=== PATIENT | female | born 1950 | race Caucasian/White ===

== ENCOUNTER → 2016-10-29 | Outpatient (CLI) | payer MEDICARE ==
[2016-10-29 12:32] LABS: Basophils % (A) 1 %; CH 31.1; CHCM 32.2; Eosinophils # (A) 0.2 k/uL (0-0.7); Eosinophils % (A) 4 %; HCT 36.1 % (34.0-46.0); HDW 2.45; HGB 11.7 gm/dL (11.4-16.0); Luc # (Auto) 0.18; Luc % (Auto) 4; Lymphocytes % (A) 48 %; MCH 31.4 pg (25.0-35.0); MCHC 32.4 g/dL (31.0-37.0); Mean Platelet Volume 6.6; Monocytes # (A) 0.2 k/uL (0-1.0); Monocytes % (A) 5 %; Neutrophils # (A) 1.6 k/uL (1.3-7.7); Neutrophils % (A) 38 %; RBC 3.73 m/uL (3.80-5.40); RDW 13.9 % (11.5-15.5); WBC 4.1 k/uL (3.8-10.6); WBC (Perox) 4.34
[2016-10-29 12:42] LABS: Potassium 4.3 mmol/L (3.5-5.1)
== END | disposition home or self-care (01) ==
LOC: LABWHC1 12:00
PROVIDERS: ATTEND Internal Medicine Interventional Cardiology
DX: Z01.812 Encounter for preprocedural laboratory examination (principal); E78.00 Pure hypercholesterolemia, unspecified; I10 Essential (primary) hypertension; I25.10 Atherosclerotic heart disease of native coronary artery without angina pectoris
CPT/HCPCS: 36415; 80051; 82565; 84520; 85025

== ENCOUNTER 2016-11-02 20:03 | Observation (INO) | payer MEDICARE ==
[2016-11-02 22:28] VITALS: BMI 32.3
[2016-11-03] MEDS ORDERED: SODIUM CHLORIDE 0.9% 1,000 ML IV SCH (01:15)
[2016-11-03] MEDS ORDERED: diphenhydrAMINE 25 MG CAP ONE (06:58)
[2016-11-03] MEDS: predniSONE 20 MG TAB PO SCH ×2 (06:59→07:07)
[2016-11-03 07:38] LABS: Blood Urea Nitrogen 20 mg/dL (7-17); Non-African American GFR(MDRD) 52 (>60 ml/min/1.73 sqM)
[2016-11-03] MEDS: MIDAZOLAM 2 MG/2 ML VIAL IV ONE ×2 (07:49→07:54)
[2016-11-03] MEDS: VERAPAMIL SYRINGE (5 MG/10 ML) INTRAARTER ONE ×2 (07:53→08:15)
[2016-11-03] MEDS ORDERED: HEPARIN SODIUM 1,000 UNIT/ML VIAL IV ONE (07:54)
[2016-11-03] MEDS ORDERED: NITROGLYCERIN SL TABS 0.4 MG TAB SUBLINGUAL ONE (07:59)
[2016-11-03] MEDS ORDERED: NITROGLYCERIN 1000MCG/10ML SYRINGE INTRACORON ONE (08:00)
[2016-11-03] MEDS: HYDROmorphone 2 MG/ML 1 ML SYRINGE IV ONE ×2 (08:02→08:27)
[2016-11-03] MEDS ORDERED: IODIXANOL 320 MG/ML 100 ML INTRAARTER ONE (08:18)
[2016-11-03] MEDS ORDERED: RX INFO: IV CONTRAST WAS GIVEN 1 EACH MISC MISCELLANE PRN (08:29)
[2016-11-03] MEDS ORDERED: FOLIC ACID 1 MG TAB PO SCH (09:00)
[2016-11-03] MEDS ORDERED: PRAVASTATIN SODIUM 20 MG TAB PO SCH (09:00)
[2016-11-03] MEDS ORDERED: LOPERAMIDE 2 MG CAP PO SCH (09:00)
[2016-11-03] MEDS ORDERED: ASPIRIN 325 MG TAB PO SCH (09:00)
[2016-11-03] MEDS ORDERED: ESCITALOPRAM 10 MG TAB PO SCH (09:00)
[2016-11-03] MEDS ORDERED: PRAVASTATIN SODIUM 40 MG TAB PO SCH (09:00)
[2016-11-03] MEDS ORDERED: MULTIVITAMINS, THERA 1 EACH TAB PO SCH (09:00)
[2016-11-03] MEDS ORDERED: PANTOPRAZOLE 40 MG TABLET PO SCH (09:00)
[2016-11-03] MEDS ORDERED: LOSARTAN 50 MG TAB PO SCH (09:00)
[2016-11-03] MEDS ORDERED: CALCIUM CARBONATE 500 MG CHEWABLE PO SCH (09:00)
[2016-11-03] MEDS ORDERED: HYDROXYCHLOROQUINE SULFATE 200 MG TAB PO SCH (09:00)
[2016-11-03] MEDS ORDERED: diphenhydrAMINE 25 MG CAP PO SCH (09:00)
[2016-11-03] MEDS ORDERED: PRAVASTATIN SODIUM 20 MG TAB PO ONE (09:00)
[2016-11-03] MEDS ORDERED: ACETAMINOPHEN TAB 325 MG TAB PO PRN (09:52)
[2016-11-03 16:43] VITALS: BP 115/57; RESP 18; TEMP 98.4
[2016-11-03 17:20] VITALS: PULSE 52
--- NOTE | 2016-11-03 20:31 | CC ---
DATE OF SERVICE: 11/03/2016. PROCEDURE: Left heart catheterization and coronary angiography. PERFORMED BY: Dr. Bebe Alanis. CLINICAL INFORMATION: Mrs. Stephie Mckinley is 66-year-old lady with a history of hypertension, hyperlipidemia, noncritical CAD based on a cardiac cath from 2008. She has been having symptoms suggestive of angina, had a negative stress but recurrent chest pains, and after due discussion, I have advised her to have a cardiac catheterization. PROCEDURE NOTE: Under local anesthesia and strict aseptic precautions, a 6 [place] introducer was placed in the right radial artery. Using an Ultima one catheter, I performed selective coronary angiography of the left system. I used a 3.5 curved right Sumit catheter for selective injection of the RCA and then checked LV pressures but I did not perform an LV gram. I used a pigtail catheter. The patient tolerated the procedure well without complication. A TR band was applied as per protocol and the saturation of the fingers of the right hand was about 93%. CARDIAC CATHETERIZATION FINDINGS: The left ventricle end-diastolic pressure was about 16 mmHg and no gradient across aortic valve was noted. CORONARY ANGIOGRAPHIC FINDINGS: RIGHT CORONARY ARTERY: Large dominant vessel, free of significant disease bifurcates into a large PDA and PLV, both of which supply a sizable amount of myocardium. There is no significant disease in the dominant RCA. LEFT MAIN CORONARY ARTERY: A short, patent, disease-free vessel which bifurcates into LAD and circumflex. LEFT ANTERIOR DESCENDING CORONARY ARTERY: This is a good caliber vessel that extends along the anterior wall supplies a sizable amount of myocardium. Very proximally it gives off a diagonal branch. The diagonal branch has about a 40% stenosis in its proximal portion and then the caliber improves. The LAD after the diagonal origin, has narrowing of about another 40% or so, best seen in the MALAY cranial projection and then the caliber of the vessel improves and it runs all the way to the apex giving off several septal and diagonal branches supplying a sizable amount of myocardium. After the diagonal branch, there is a 40% lesion and then there is a septal branch and there was another 40% lesion in the LAD. The LAD therefore has a 40% lesion immediately after the diagonal branch and after the septal branch, there is another 30 to 40% smooth narrowing as well. This lesion does not appear critical and there is mild calcification and on comparing with the previous study from 2008 there is no significant change. The LAD beyond the stenosis as mentioned above supplies ( ) myocardium runs all the way to the apex and supplies a sizable amount of myocardium. The diagonal branch is also a fairly large caliber and distribution. LEFT POSTERIOR CIRCUMFLEX CORONARY ARTERY: Technically a nondominant vessel; gives off a good-sized obtuse marginal branch that runs laterally, supplies a fair amount of myocardium has minor irregularities. No significant disease. LEFT VENTRICULOGRAM: This was not performed. FINAL IMPRESSION: This patient has a right dominant system 40% lesion involving the LAD after the diagonal branch and the diagonal itself also has another 40% lesion. The lesions are no different significantly on an angiographic basis compared to the previous study from 2008 and this patient did not have any abnormality on the nuclear scan. The dominant RCA is free of significant disease and circumflex has minor irregularities. LV pressure was acceptable but LV gram was not performed. RECOMMENDATIONS: I am recommending aggressive medical therapy and I will re-evaluate the patient, increase the statins and I will consider an FFR only if she continues to have symptoms. I discussed the findings at length with the patient and family and she will be discharged later on today. She was brought in yesterday and hydrated and creatinine improved. We will continue hydration, discharge her and recheck the creatinine 48 hours and see the patient on the .
--- NOTE | 2016-11-03 20:36 | DS ---
DATE OF ADMISSION: 11/02/2016 DATE OF DISCHARGE: 11/03/2016 DISCHARGE DIAGNOSIS(ES): 1. Chronic kidney disease secondary to hypertension stage one. 2. Hypertension. 3. Hypercholesterolemia. 4. Coronary artery disease with symptoms of unstable angina brought in for a cardiac cath and brought in early for hydration. This patient was brought in electively for cardiac cath. She was hydrated because of elevated creatinine and the creatinine improved to 1.06. She received the least amount of contrast, underwent coronary angiography uneventfully. She will be discharged later on today after ( ) and hydration for several hours and I will repeat a creatinine in 48 hours and see her in the office. She has moderate coronary artery disease. No significant change. Advised to continue medical therapy. Findings were discussed at length with the patient and her . I will see her in the office on the . Discharge instructions regarding activity, diet and medications were given.
[2016-11-04] MEDS ORDERED: PRAVASTATIN SODIUM 40 MG TAB PO SCH (09:00)
== END 2016-11-03 17:50 | disposition home or self-care (01) ==
LOC: INTOOBSV 20:03 → 3OBS 20:03
PROVIDERS: ADMIT Internal Medicine Interventional Cardiology; ATTEND Internal Medicine Interventional Cardiology
DX: I12.9 Hypertensive chronic kidney disease with stage 1 through stage 4 chronic kidney disease, or unspecified chronic kidney disease (principal); N18.1 Chronic kidney disease, stage 1; I25.10 Atherosclerotic heart disease of native coronary artery without angina pectoris; E78.5 Hyperlipidemia, unspecified
CPT/HCPCS: 93458; 82565; 84520; G0378 ×2; G0379; C1769 ×3; C1894 ×2; J2250; J1170; Q9967; J1644; 96360; 96361

== ENCOUNTER → 2016-11-05 | Outpatient (CLI) | payer MEDICARE ==
[2016-11-05 10:59] LABS: Calcium 9.3 mg/dL (8.4-10.2); Potassium 4.2 mmol/L (3.5-5.1)
== END | disposition home or self-care (01) ==
LOC: LABWHC1 09:51
PROVIDERS: ATTEND Internal Medicine Interventional Cardiology
DX: I25.10 Atherosclerotic heart disease of native coronary artery without angina pectoris (principal); I10 Essential (primary) hypertension; Z98.890 Other specified postprocedural states
CPT/HCPCS: 36415; 80048

== ENCOUNTER → 2016-11-26 | Outpatient (CLI) | payer MEDICARE ==
--- NOTE | 2016-11-26 11:30 | XR ---
EXAMINATION TYPE: XR chest 2V DATE OF EXAM: 11/26/2016 9:55 AM COMPARISON: Prior chest x-ray four May 2015 HISTORY: Shortness of breath and chest pain TECHNIQUE: Frontal and lateral views of the chest are obtained. FINDINGS: There is no focal air space opacity, pleural effusion, or pneumothorax seen. The cardiac silhouette size is within normal limits. Suspect coronary artery calcifications. Surgical clips agai n noted in the upper abdomen. The osseous structures are intact. IMPRESSION: No acute cardiopulmonary process.
== END | disposition home or self-care (01) ==
LOC: RADXRMAIN 09:26
PROVIDERS: ATTEND Internal Medicine
DX: R06.02 Shortness of breath (principal)
CPT/HCPCS: 71020

== ENCOUNTER → 2017-04-13 | Outpatient (CLI) | payer MEDICARE ==
--- NOTE | 2017-04-15 13:21 | MM ---
Reason for exam: screening (asymptomatic). Last mammogram was performed 1 year ago. History: Patient is postmenopausal. Family history of breast cancer in sister at age 54, premenopausal breast cancer in sister at age 42, and breast cancer in aunt at age 70. Benign stereotactic core biopsy of the right breast, December 31, 1999. Cyst aspiration of the left breast, 1999. Took estrogen for 2 years. Took progesterone for 2 years. Physical Findings: A clinical breast exam by your physician is recommended on an annual basis and results should be correlated with mammographic findings. MG Screening Mammo w CAD Bilateral CC and MLO view(s) were taken. Prior study comparison: April 10, 2016, bilateral MG screening mammo w CAD. The breast tissue is heterogeneously dense. This may lower the sensitivity of mammography. Finding: There are typically benign, fine, diffuse/scattered calcifications in the anterior position of the left breast. Previous mammotome biopsy in the right breast. No significant changes in finding since April 10, 2016. ASSESSMENT: Benign, BI-RAD 2 RECOMMENDATION: Routine screening mammogram of both breasts in 1 year.
== END | disposition home or self-care (01) ==
LOC: RADMAMWWP 12:32
PROVIDERS: ATTEND Internal Medicine
DX: Z12.31 Encounter for screening mammogram for malignant neoplasm of breast (principal)

== ENCOUNTER → 2017-04-21 | Outpatient (CLI) | payer MEDICARE | END | disposition home or self-care (01) | LOC: LABWHC1 11:41 | PROVIDERS: ATTEND Internal Medicine Gastroenterology | DX: Z53.9 Procedure and treatment not carried out, unspecified reason (principal); D64.9 Anemia, unspecified ==

== ENCOUNTER 2017-05-06 08:54 | Day surgery (SDC) | payer MEDICARE ==
[2017-05-01 15:12] VITALS: BMI 31.6
[~2017-05-06 08:54] MED LIST: LACTATED RINGERS 1,000 ML IV SCH; LIDOCAINE 1% 20 ML VIAL (10MG/ML) FOR IV START INTRADERMA PRN
[2017-05-06 09:41] VITALS: RESP 16; TEMP 98.3
[2017-05-06] MEDS ORDERED: HYDROmorphone 1 MG/ML 1 ML SYRINGE IVP ONE (09:46)
[2017-05-06] MEDS ORDERED: LIDOCAINE 1% INJ 10MG/ML (20 ML MDV) ONE (10:02)
[2017-05-06] MEDS ORDERED: PROPOFOL 10 MG/ML 20 ML VIAL IV ONE (10:02)
--- NOTE | 2017-05-06 10:28 | P.PCN ---
Date of Procedure: 05/06/17 Preoperative Diagnosis: Postoperative Diagnosis: Procedure(s) Performed: Brief history: Patient is a pleasant 67-year-old white female, scheduled for an elective upper endoscopy as well as colonoscopy as a part of evaluation of iron deficiency anemia. She has been recently taking ibuprofen 800 mg 3 times daily for her arthritis. She has been complaining of epigastric pain for the last 3 months duration. Has occasional nausea but no emesis. No rectal bleeding or melena. Procedure performed: Esophagogastroduodenoscopy biopsy Colonoscopy Preoperative diagnosis: Iron deficiency anemia Epigastric pain Anesthesia: MAC Procedure: After informed consent was obtained from the patient was brought into the endoscopy unit and IV sedation was administered by anesthesia under continuous monitoring. Initially upper endoscopy was done. The Olympus GF 160 video endoscope was inserted inserted into the mouth and esophagus intubated without any difficulty and was gradually advanced into the stomach and duodenum and carefully examined. The bulb and second part of the duodenum appeared normal. The scope was then withdrawn into the stomach adequately insufflated with air and upon careful examination the antrum had mild gastritis and biopsies were done from this area. No ulcerations seen. The body, cardia and fundus appeared normal. The scope was then withdrawn into the esophagus. The GE junction was located at 40 cm to the incisors. It appeared regular with no erythema erosions or ulcerations. Rest of the esophagus appeared normal. Patient tolerated the procedure well. At this time the patient continued to remain sedation. Initial digital rectal examination was normal. Olympus CF 160 video colonoscope was then inserted into the rectum and gradually advanced to the cecum without any difficulty. Careful examination was performed as the scope was gradually being withdrawn. The prep was excellent. The cecum, ascending colon, transverse colon, descending colon, sigmoid colon and rectum appeared normal. Scattered sigmoid diverticulosis seen. Retroflexion was performed in the rectum and small internal hemorrhoids were noted. Patient tolerated the procedure well. Impression: 1. Upper endoscopy revealed antral erosive gastritis but no evidence of esophagitis or peptic ulcer disease. 2. Colonoscopy revealed scattered sigmoid diverticulosis and small internal hemorrhoids Recommendations: Findings of this examination were discussed with the patient as well as her family. She was advised to follow with the biopsy results. She will resume iron supplements and continue on Prilosec 20 mg daily. Implants: Indications for Procedure: Operative Findings: Description of Procedure:
[2017-05-06 10:48] VITALS: BP 115/70; PULSE 66
== END 2017-05-06 11:10 | disposition home or self-care (01) ==
LOC: ORWHC2ENDO 08:54
PROVIDERS: ATTEND Internal Medicine Gastroenterology
DX: K57.30 Diverticulosis of large intestine without perforation or abscess without bleeding (principal); K64.8 Other hemorrhoids; K29.70 Gastritis, unspecified, without bleeding; D50.9 Iron deficiency anemia, unspecified; I10 Essential (primary) hypertension; E78.5 Hyperlipidemia, unspecified; M06.9 Rheumatoid arthritis, unspecified; F39 Unspecified mood [affective] disorder; M19.90 Unspecified osteoarthritis, unspecified site; K21.9 Gastro-esophageal reflux disease without esophagitis; Z79.1 Long term (current) use of non-steroidal anti-inflammatories (NSAID); Z79.82 Long term (current) use of aspirin; Z79.899 Other long term (current) drug therapy; Z88.7 Allergy status to serum and vaccine; Z91.041 Radiographic dye allergy status; Z87.891 Personal history of nicotine dependence
CPT/HCPCS: 88305; 88342; 45378; 43239; J2001; J1170; J2704

== ENCOUNTER → 2017-07-24 | Outpatient (CLI) | payer MEDICARE ==
--- NOTE | 2017-07-26 22:06 | BD ---
EXAMINATION TYPE: MG DEXA axial skeleton. DATE OF EXAM: 07/24/2017 COMPARISON: NONE CLINICAL HISTORY: 67-year-old female postmenopausal screening Height: 65 Weight: 199.6 FRAX RISK QUESTIONS: Alcohol (3 or more units per day): no Family History (Parent hip fracture): no Glucocorticoids (More than 3mos): no (Ex: prednisone, prednisolone, methylprednisolone, dexamethasone, and hydrocortisone). History of Fracture in Adulthood: no Secondary Osteoporosis: 1. Type 1 Diabetes: no 2. Hyperthyroidism: no 3. Menopause before 45: no 4. Malnutrition: no 5. Chronic liver disease: no Rheumatoid Arthritis: yes Current Tobacco Use: no RISK FACTORS HISTORY OF: Hip Fracture (Right/Left): no Spine Fracture: no History of Wrist Fracture: no Surgery to Spine/Hip(right/left)/Wrist (right/left): no Family History of Osteoporosis: no Active: yes Diet low in dairy products/other sources of calcium: no Postmenopausal woman: around age 49 Lost more than 2 inches in height since high school: no Frequent falls: no Poor Health: no Hyperparathyroidism: no Adrenal Insufficiency: no MEDICATIONS: rheumatoid meds x3, blood pressure med x2 ,cholesterol med Additional History: EXAM MEASUREMENTS: Bone mineral densitometry was performed using the [employer]. Bone mineral density as measured about the Lumbar spine is: ----- L1-L4(G/cm2): 1.268 T Score Values are as follows: ----- L2: 1.5 ----- L3: 1.1 ----- L4: 0.1 ----- L1-L4: 0.7 Bone mineral density has: decreased -4.3 % since study of: 09.22.2014 Bone mineral density about the R hip (g/cm2): 0.906 Bone mineral density about the L hip (g/cm2): 0.846 T Score values are as follows: -----R Neck: -0.9 -----L Neck: -1.4 -----R Total: -0.8 -----L Total: -0.9 Bone mineral density has: decreased -8.2 % since study of: 09.22.2014 IMPRESSION: Osteopenia (T Score between -2.5 and -1 as noted by T score values in the left hip). There is slightly increased risk of fracture and the patient may be considered for treatment. Re-Screen 2-5 years. NOTE: T-SCORE=SD OF THE YOUNG ADULT MEAN.
== END | disposition home or self-care (01) ==
LOC: RADBDWWP 15:32
PROVIDERS: ATTEND Internal Medicine
DX: M85.88 Other specified disorders of bone density and structure, other site (principal); N95.1 Menopausal and female climacteric states
CPT/HCPCS: 77080

== ENCOUNTER → 2017-12-14 | Outpatient (CLI) | payer MEDICARE ==
[2017-12-14 08:35] LABS: Basophils % (A) 1 %; Eosinophils # (A) 0.2 k/uL (0-0.7); Eosinophils % (A) 5 %; HGB 11.3 gm/dL (11.4-16.0); Lymphocytes # (A) 1.9 k/uL (1.0-4.8); Lymphocytes % (A) 38 %; MCHC 32.4 g/dL (31.0-37.0); MCV 95.8 fL (80.0-100.0); Monocytes # (A) 0.2 k/uL (0-1.0); Monocytes % (A) 5 %; Neutrophils # (A) 2.4 k/uL (1.3-7.7); Neutrophils % (A) 50 %; Platelet Count 311 k/uL (150-450); RBC 3.65 m/uL (3.80-5.40); RDW 13.7 % (11.5-15.5); WBC 4.9 k/uL (3.8-10.6)
[2017-12-14 08:40] LABS: Albumin 3.9 g/dL (3.5-5.0); Bilirubin, Delta 0.3 mg/dL (0.0-0.2); Bilirubin,Unconjugated 0.1 mg/dL (0.0-1.1); Total Bilirubin 0.4 mg/dL (0.2-1.3); Total Protein 6.8 g/dL (6.3-8.2)
== END | disposition home or self-care (01) ==
LOC: LABWHC1 07:42
PROVIDERS: ATTEND Internal Medicine Rheumatology
DX: M05.9 Rheumatoid arthritis with rheumatoid factor, unspecified (principal); Z51.81 Encounter for therapeutic drug level monitoring
CPT/HCPCS: 36415; 80076; 82565; 85025

== ENCOUNTER → 2018-04-23 | Outpatient (CLI) | payer MEDICARE ==
--- NOTE | 2018-04-27 08:03 | MM ---
Reason for exam: screening (asymptomatic). Last mammogram was performed 1 year ago. History: Patient is postmenopausal. Family history of breast cancer in sister at age 54, premenopausal breast cancer in sister at age 42, and breast cancer in daughter at age 36. Benign stereotactic core biopsy of the right breast, December 31, 1999. Cyst aspiration of the left breast, 1999. Took estrogen for 2 years. Took progesterone for 2 years. Physical Findings: A clinical breast exam by your physician is recommended on an annual basis and results should be correlated with mammographic findings. MG Screening Mammo w CAD Bilateral CC and MLO view(s) were taken. Prior study comparison: April 13, 2017, bilateral MG screening mammo w CAD. April 10, 2016, bilateral MG screening mammo w CAD. There are scattered fibroglandular densities. Previous mammotome biopsy in the right breast. No significant changes when compared with prior studies. ASSESSMENT: Negative, BI-RAD 1 RECOMMENDATION: Routine screening mammogram of both breasts in 1 year.
== END | disposition home or self-care (01) ==
LOC: RADMAMWWP 08:38
PROVIDERS: ATTEND Internal Medicine
DX: Z12.31 Encounter for screening mammogram for malignant neoplasm of breast (principal)
CPT/HCPCS: 77067

== ENCOUNTER → 2019-04-25 | Outpatient (CLI) | payer MEDICARE ==
--- NOTE | 2019-04-25 15:43 | XR ---
EXAMINATION TYPE: XR chest 2V DATE OF EXAM: 04/25/2019 COMPARISON: Prior chest x-ray 11/26/2016 HISTORY: Cough TECHNIQUE: Frontal and lateral views of the chest are obtained. FINDINGS: There is no focal air space opacity, pleural effusion, or pneumothorax seen. The cardiac silhouette size is within normal limits. The osseous structures are intact. IMPRESSION: No acute cardiopulmonary process.
== END | disposition home or self-care (01) ==
LOC: RADXRMAIN 11:01
PROVIDERS: ATTEND Internal Medicine
DX: R05 Cough (principal)
CPT/HCPCS: 71046

== ENCOUNTER → 2019-05-03 | Outpatient (CLI) | payer MEDICARE ==
--- NOTE | 2019-05-03 11:29 | US ---
EXAMINATION TYPE: US abdomen complete DATE OF EXAM: 05/03/2019 COMPARISON: US 05/12/2016 CLINICAL HISTORY: 69-year-old female R10.13 Epigastric pain. Gallbladder surgically absent TECHNIQUE: Multiple sonographic images of the abdomen are obtained. FINDINGS: EXAM MEASUREMENTS: Liver Length: 14.3 cm Gallbladder: Surgically absent CBD: 1.0 cm Spleen: 8.4 cm Right Kidney: 10.0 x 4.0 x 4.6 cm Left Kidney: 10.7 x 4.6 x 4.9 cm Pancreas: Only a small portion of the pancreatic head and neck are visualized. Remainder obscured by bowel gas. Liver: Overall homogeneous appearance without focal lesion. Gallbladder: surgically absent Evidence for sonographic Thomas's sign: Yes CBD: Dilated but probably within normal limits given postcholecystectomy status. The distal portion is obscured by bowel gas Spleen: Two prominent hyperechoic areas visualized measuring 0.9 cm of unknown etiology Right Kidney: No hydronephrosis or masses seen Left Kidney: No hydronephrosis. Cystic area upper pole measuring 1.5 x 1.3 x 1.6 cm Upper IVC: wnl Abd Aorta: wnl IMPRESSION: 1. Dilated bile duct at 1 cm. Likely chronic given postcholecystectomy status. This can be confirmed with normal alkaline phosphatase and bilirubin levels. 2. 2 rounded hypoechoic areas near the hilum of the spleen measuring up to 9 mm could represent splen ules or splenic artery aneurysms. Cross-sectional evaluation as indicated.
== END | disposition home or self-care (01) ==
LOC: RADUSWWP 06:49
PROVIDERS: ATTEND Surgery
DX: K83.8 Other specified diseases of biliary tract (principal); R93.89 Abnormal findings on diagnostic imaging of other specified body structures; R10.13 Epigastric pain; Z90.49 Acquired absence of other specified parts of digestive tract
CPT/HCPCS: 76700

== ENCOUNTER → 2019-05-16 | Outpatient (CLI) | payer MEDICARE ==
--- NOTE | 2019-05-17 08:19 | MM ---
Reason for exam: screening (asymptomatic). Last mammogram was performed 1 year and 1 month ago. History: Patient is postmenopausal. Family history of breast cancer in sister at age 54, premenopausal breast cancer in sister at age 42, and breast cancer in daughter at age 36. Benign stereotactic core biopsy of the right breast, December 31, 1999. Cyst aspiration of the left breast, 1999. Took estrogen for 2 years. Took progesterone for 2 years. Physical Findings: A clinical breast exam by your physician is recommended on an annual basis and results should be correlated with mammographic findings. MG Screening Mammo w CAD Bilateral CC and MLO view(s) were taken. Prior study comparison: April 23, 2018, bilateral MG screening mammo w CAD. April 13, 2017, bilateral MG screening mammo w CAD. The breast tissue is heterogeneously dense. This may lower the sensitivity of mammography. Benign appearing bilateral calcifications. No suspicious abnormality. Right biopsy marker noted. No significant changes when compared with prior studies. ASSESSMENT: Benign, BI-RAD 2 RECOMMENDATION: Routine screening mammogram of both breasts in 1 year.
== END | disposition home or self-care (01) ==
LOC: RADMAMWWP 10:25
PROVIDERS: ATTEND Internal Medicine
DX: Z12.31 Encounter for screening mammogram for malignant neoplasm of breast (principal)
CPT/HCPCS: 77067

== ENCOUNTER → 2019-06-16 | Outpatient (CLI) | payer MEDICARE ==
--- NOTE | 2019-06-16 09:29 | CT ---
EXAMINATION TYPE: CT abdomen pelvis w con DATE OF EXAM: 06/16/2019 COMPARISON: None HISTORY: Abdominal pain, epigastric CT DLP: 1331 mGycm CONTRAST: CT scan of the abdomen and pelvis is performed with Oral Contrast and with IV Contrast, patient injec [place] with 80 ml mL of Isovue 300. FINDINGS: LUNG BASES-: 4 mm pleural-based nodule right lower lobe. No infiltrate. LIVER/GB: O cystectomy clips are in place. No space occupying hepatic lesion. Biliary tree is of n ormal caliber. PANCREAS: No inflammation. No distinct mass. SPLEEN: No splenic enlargement. No lesion seen. ADRENALS: No nodule. No thickening. KIDNEYS/BLADDER: No hydronephrosis. No nephrolithiasis. Double cyst upper pole left kidney measurin g 1.8 cm. No solid renal lesions detected. Urinary bladder grossly unremarkable. BOWEL: Normal appendix. Normal bowel caliber. No inflammation. GENITAL ORGANS: No gross abnormality. LYMPH NODES: No greater than 1cm abdominal or pelvic lymph nodes are appreciated. AORTA: No significant abnormality. OSSEOUS STRUCTURES: No significant abnormality is seen. OTHER: No significant additional abnormality is seen. IMPRESSION: 1. No Significant abnormality to account for symptoms.
== END | disposition home or self-care (01) ==
LOC: RADCTMAIN 07:39
PROVIDERS: ATTEND Internal Medicine
DX: R10.84 Generalized abdominal pain (principal); Z88.3 Allergy status to other anti-infective agents
CPT/HCPCS: 82565; 84520; 74177; 36415; Q9967

== ENCOUNTER → 2019-10-14 | Outpatient (CLI) | payer MEDICARE ==
--- NOTE | 2019-10-14 18:25 | BD ---
EXAMINATION TYPE: Axial Bone Density DATE OF EXAM: 10/14/2019 COMPARISON: 09.22.2014 CLINICAL HISTORY: 69 YR OLD FEMALE....ICD-10 CODE: M89.9 DISORDER OF BONE Height: 64.2 Weight: 197 FRAX RISK QUESTIONS: Glucocorticoids (More than 3mos): ON AND OFF FOR RA (Ex: prednisone, prednisolone, methylprednisolone, dexamethasone, and hydrocortisone). Rheumatoid Arthritis: YES Current Tobacco Use: YES RISK FACTORS HISTORY OF: Postmenopausal woman: YES AT ABOUT 51 YRS OLD Take estrogen and/or progesterone medications: YES, IN PAST FOR ABOUT 1-2 YRS Hyperparathyroidism: NO Adrenal Insufficiency: NO MEDICATIONS: Prednisone or other steroids: ON AND OFF FOR RA Additional Medications: BP MEDS, LEXAPRO, REFLUX, STATIN FOR CHOLESTEROL, CALCIUM, FOLIC ACID, METHOT REXATE, PLAQUENIL, Additional History: RA, HYPERTENSION, REFLUX EXAM MEASUREMENTS: Bone mineral densitometry was performed using the [employer] System. Bone mineral density as measured about the Lumbar spine is: ----- L1-L4(G/cm2): 1.337 T Score Values are as follows: ----- L1: 0.9 ----- L2: 2.2 ----- L3: 2.1 ----- L4: 0.1 ----- L1-L4: 1.3 Bone mineral density has: Increased 5.2% since study of: 09.22.2014 Bone mineral density about the R hip (g/cm2): 0.884 Bone mineral density about the L hip (g/cm2): 0.916 T Score values are as follows: -----R Neck: -1.1 -----L Neck: -1.3 -----R Total: -1.0 -----L Total: -0.7 Bone mineral density has: Decreased -0.2% since study of: 09.22.2014 FRAX%s: THERE IS A 18.2% CHANCE FOR A MAJOR OSTEOPOROTIC FX AND A 3.0% FOR HIP .....PROBABILITY FO R FX IN 10 YRS TIME IMPRESSION: Osteopenia (T Score between -2.5 and -1). There is slightly increased risk of fracture and the patient may be considered for treatment. Re-Screen 2-5 years. NOTE: T-SCORE=SD OF THE YOUNG ADULT MEAN.
== END | disposition home or self-care (01) ==
LOC: RADBDWWP 07:44
PROVIDERS: ATTEND Internal Medicine
DX: M85.88 Other specified disorders of bone density and structure, other site (principal)
CPT/HCPCS: 77080

== ENCOUNTER → 2019-11-02 | Outpatient (CLI) | payer MEDICARE | END | disposition home or self-care (01) | LOC: LABWHC1 15:33 | PROVIDERS: ATTEND Orthopaedic Surgery | DX: Z53.9 Procedure and treatment not carried out, unspecified reason (principal) ==

== ENCOUNTER → 2020-05-29 | Outpatient (CLI) | payer MEDICARE ==
[2020-05-29 18:54] LABS: Chol/HDL Ratio 3.71; LDL Cholesterol,Calculated 107.4 mg/dL (0.0-131.0); VLDL Calculation 25.6 mg/dL (5.00-40.00)
== END | disposition home or self-care (01) ==
LOC: LABWHC1 08:51
PROVIDERS: ATTEND Internal Medicine
DX: E78.2 Mixed hyperlipidemia (principal); E55.9 Vitamin D deficiency, unspecified; I10 Essential (primary) hypertension
CPT/HCPCS: 36415; 80061; 82306; 84443

== ENCOUNTER → 2020-08-24 | Outpatient (CLI) | payer MEDICARE ==
[2020-08-24 15:31] LABS: Basophils % (A) 1 %; Eosinophils # (A) 0.2 k/uL (0-0.7); Eosinophils % (A) 3 %; HCT 33.7 % (34.0-46.0); HGB 11.1 gm/dL (11.4-16.0); Lymphocytes # (A) 2.4 k/uL (1.0-4.8); Lymphocytes % (A) 37 %; MCH 32.1 pg (25.0-35.0); MCHC 32.9 g/dL (31.0-37.0); MCV 97.6 fL (80.0-100.0); Mean Platelet Volume 6.5; Monocytes # (A) 0.5 k/uL (0-1.0); Monocytes % (A) 7 %; Neutrophils # (A) 3.3 k/uL (1.3-7.7); Neutrophils % (A) 50 %; Platelet Count 282 k/uL (150-450); RBC 3.46 m/uL (3.80-5.40); RDW 13.1 % (11.5-15.5); WBC 6.5 k/uL (3.8-10.6)
[2020-08-25 04:45] LABS: ALT 18 U/L (8-44); AST 23 U/L (13-35); African American GFR (CKD) 58.5 (60.0-200.0); Albumin/Globulin Ratio 1.86 (1.60-3.17); Alkaline Phosphatase 34 U/L (41-126); Bilirubin, Conjugated <0.20 mg/dL (0.20-0.40); Globulin 2.2 g/dL (1.6-3.3); Non-African American GFR(CKD) 50.5 (60.0-200.0); Total Bilirubin 0.2 mg/dL (0.3-1.2); Total Protein 6.3 g/dL (6.2-8.2)
== END | disposition home or self-care (01) ==
LOC: LABWHC1 14:50
PROVIDERS: ATTEND Internal Medicine
DX: M05.9 Rheumatoid arthritis with rheumatoid factor, unspecified (principal); Z51.81 Encounter for therapeutic drug level monitoring
CPT/HCPCS: 36415; 80076; 82565; 85025

== ENCOUNTER → 2020-08-24 | Outpatient (CLI) | payer MEDICARE ==
--- NOTE | 2020-08-27 10:18 | MM ---
Reason for exam: screening (asymptomatic). Last mammogram was performed 1 year and 3 months ago. History: Patient is postmenopausal. Family history of breast cancer in sister at age 54, premenopausal breast cancer in sister at age 42, and breast cancer in daughter at age 36. Benign stereotactic core biopsy of the right breast, December 31, 1999. Cyst aspiration of the left breast, 1999. Took estrogen for 2 years. Took progesterone for 2 years. Physical Findings: A clinical breast exam by your physician is recommended on an annual basis and results should be correlated with mammographic findings. MG Screening Mammo w CAD Bilateral CC and MLO view(s) were taken. Prior study comparison: May 16, 2019, bilateral MG screening mammo w CAD. April 23, 2018, bilateral MG screening mammo w CAD. The breast tissue is heterogeneously dense. This may lower the sensitivity of mammography. Stable benign calcifications. No significant changes when compared with prior studies. ASSESSMENT: Benign, BI-RAD 2 RECOMMENDATION: Routine screening mammogram of both breasts in 1 year.
== END | disposition home or self-care (01) ==
LOC: RADMAMWWP 14:32
PROVIDERS: ATTEND Internal Medicine
DX: Z12.31 Encounter for screening mammogram for malignant neoplasm of breast (principal)
CPT/HCPCS: 77067

== ENCOUNTER → 2020-11-16 | Outpatient (CLI) | payer MEDICARE ==
[2020-11-16 15:21] LABS: Basophils # (A) 0.04 X 10*3/uL (0.00-0.10); Basophils % (A) 0.8 %; Eosinophils # (A) 0.11 X 10*3/uL (0.04-0.35); Eosinophils % (A) 2.2 %; HCT 35.9 % (37.2-46.3); HGB 11.1 g/dL (12.0-15.0); Lymphocytes # (A) 1.88 X 10*3/uL (0.90-5.00); Lymphocytes % (A) 37.6 %; MCH 30.7 pg (27.0-32.0); MCHC 30.9 g/dL (32.0-37.0); MCV 99.4 fL (80.0-97.0); Mean Platelet Volume 9.5 fL (9.5-12.2); Monocytes # (A) 0.41 X 10*3/uL (0.20-1.00); Monocytes % (A) 8.2 %; Neutrophils # (A) 2.55 X 10*3/uL (1.80-7.70); Platelet Count 254 X 10*3/uL (140-440); RBC 3.61 X 10*6/uL (4.10-5.20); RDW 13.1 % (11.5-14.5)
[2020-11-16 20:41] LABS: African American GFR (CKD) 52.7 (60.0-200.0); Non-African American GFR(CKD) 45.4 (60.0-200.0)
[2020-11-16 20:42] LABS: ALT 17 U/L (8-44); AST 24 U/L (13-35); Albumin/Globulin Ratio 1.96 (1.60-3.17); Alkaline Phosphatase 35 U/L (41-126); Bilirubin, Conjugated <0.20 mg/dL (0.20-0.40); Globulin 2.3 g/dL (1.6-3.3); Total Bilirubin 0.4 mg/dL (0.3-1.2); Total Protein 6.8 g/dL (6.2-8.2)
== END | disposition home or self-care (01) ==
LOC: LABWHC1 09:38
PROVIDERS: ATTEND Internal Medicine
DX: Z51.81 Encounter for therapeutic drug level monitoring (principal); D84.9 Immunodeficiency, unspecified; M05.79 Rheumatoid arthritis with rheumatoid factor of multiple sites without organ or systems involvement; Z79.899 Other long term (current) drug therapy
CPT/HCPCS: 36415; 80076; 82565; 85025

== ENCOUNTER → 2021-02-12 | Outpatient (CLI) | payer MEDICARE ==
[2021-02-12 17:16] LABS: Basophils # (A) 0.04 X 10*3/uL (0.00-0.10); Basophils % (A) 0.7 %; Eosinophils # (A) 0.11 X 10*3/uL (0.04-0.35); HCT 35.3 % (37.2-46.3); Lymphocytes # (A) 1.61 X 10*3/uL (0.90-5.00); Lymphocytes % (A) 28.7 %; MCH 30.8 pg (27.0-32.0); MCHC 31.2 g/dL (32.0-37.0); MCV 98.9 fL (80.0-97.0); Mean Platelet Volume 9.7 fL (9.5-12.2); Monocytes # (A) 0.36 X 10*3/uL (0.20-1.00); Monocytes % (A) 6.4 %; Neutrophils # (A) 3.47 X 10*3/uL (1.80-7.70); Neutrophils % (A) 61.8 %; Platelet Count 242 X 10*3/uL (140-440); RBC 3.57 X 10*6/uL (4.10-5.20); RDW 13.4 % (11.5-14.5); WBC 5.61 X 10*3/uL (4.50-10.00)
[2021-02-13 03:30] LABS: ALT 36 U/L (8-44); AST 31 U/L (13-35); African American GFR (CKD) 52.7 (60.0-200.0); Albumin/Globulin Ratio 1.78 (1.60-3.17); Alkaline Phosphatase 37 U/L (41-126); Bilirubin, Conjugated <0.20 mg/dL (0.20-0.40); Globulin 2.3 g/dL (1.6-3.3); Non-African American GFR(CKD) 45.4 (60.0-200.0); Total Bilirubin 0.5 mg/dL (0.2-1.2); Total Protein 6.4 g/dL (6.2-8.2)
== END | disposition home or self-care (01) ==
LOC: LABWHC1 09:24
PROVIDERS: ATTEND Internal Medicine
DX: Z51.81 Encounter for therapeutic drug level monitoring (principal); D84.9 Immunodeficiency, unspecified; M05.79 Rheumatoid arthritis with rheumatoid factor of multiple sites without organ or systems involvement
CPT/HCPCS: 36415; 80076; 82565; 85025

== ENCOUNTER → 2021-05-07 | Outpatient (CLI) | payer MEDICARE ==
[2021-05-07 14:50] LABS: Basophils # (A) 0.03 X 10*3/uL (0.00-0.10); Basophils % (A) 0.5 %; Eosinophils # (A) 0.16 X 10*3/uL (0.04-0.35); Eosinophils % (A) 2.8 %; HCT 34.1 % (37.2-46.3); HGB 10.8 g/dL (12.0-15.0); Lymphocytes # (A) 1.54 X 10*3/uL (0.90-5.00); Lymphocytes % (A) 26.6 %; MCH 31.5 pg (27.0-32.0); MCHC 31.7 g/dL (32.0-37.0); MCV 99.4 fL (80.0-97.0); Mean Platelet Volume 9.5 fL (9.5-12.2); Monocytes # (A) 0.42 X 10*3/uL (0.20-1.00); Monocytes % (A) 7.3 %; Neutrophils # (A) 3.62 X 10*3/uL (1.80-7.70); Neutrophils % (A) 62.6 %; Platelet Count 246 X 10*3/uL (140-440); RBC 3.43 X 10*6/uL (4.10-5.20); RDW 13.2 % (11.5-14.5); WBC 5.78 X 10*3/uL (4.50-10.00)
[2021-05-07 18:30] LABS: ALT 17 U/L (8-44); AST 22 U/L (13-35); African American GFR (CKD) 47.5 (60.0-200.0); Albumin/Globulin Ratio 1.48 (1.60-3.17); Alkaline Phosphatase 35 U/L (41-126); Bilirubin, Conjugated <0.20 mg/dL (0.20-0.40); Globulin 2.7 g/dL (1.6-3.3); Total Bilirubin 0.4 mg/dL (0.2-1.2); Total Protein 6.7 g/dL (6.2-8.2)
== END | disposition home or self-care (01) ==
LOC: LABWHC1 07:43
PROVIDERS: ATTEND Internal Medicine
DX: M05.79 Rheumatoid arthritis with rheumatoid factor of multiple sites without organ or systems involvement (principal); D84.9 Immunodeficiency, unspecified; Z51.81 Encounter for therapeutic drug level monitoring
CPT/HCPCS: 36415; 80076; 82565; 85025

== ENCOUNTER 2021-06-19 10:00 | Observation (INO) | payer MEDICARE ==
[2021-06-19] MEDS ORDERED: ASPIRIN 81 MG PO STA (10:09)
[2021-06-19] MEDS ORDERED: NITROGLYCERIN SL TABS 0.4 MG TAB SUBLINGUAL STA ×3 (10:09)
--- NOTE | 2021-06-19 10:12 | ED ---
General Adult HPI - General Chief complaint: Chest Pain Stated complaint: Chest pain Time Seen by Provider: 06/19/21 10:06 Source: patient, RN notes reviewed Mode of arrival: wheelchair Limitations: no limitations - History of Present Illness Initial comments: Patient is a pleasant 71-year-old female presenting to the emergency Department with complaints of chest discomfort. Onset of symptoms was several days ago. Discomfort is currently 8/10. Discomfort feels like burning in her chest. Patient has associated exertional dyspnea. Symptoms worsen with exertion. Patient has had some nausea and sweating. No leg pain or leg swelling. - Related Data Home Medications Medication Instructions Recorded Confirmed Aspirin [Adult Low Dose Aspirin EC] 81 mg PO HS 10/30/16 05/01/17 Calcium Carbonate [Calcium] 1,200 mg PO BID 10/30/16 05/01/17 Escitalopram Oxalate [Lexapro] 10 mg PO DAILY 10/30/16 05/01/17 Folic Acid 2 mg PO DAILY 10/30/16 05/01/17 Glucosam/Mike-Msm1/C/Jonny/Bosw 1 tab PO BID 10/30/16 05/01/17 [Glucosamine-Chondroitin Tablet] Hydroxychloroquine Sulfate 200 mg PO BID 10/30/16 05/06/17 [Plaquenil] Loperamide [Imodium] 2 mg PO DAILY 10/30/16 05/06/17 Losartan/Hydrochlorothiazide 1 tab PO DAILY 10/30/16 05/06/17 [Losartan-Hctz 100-12.5 mg Tab] Multivitamins, Thera [Multivitamin] 1 tab PO DAILY 10/30/16 05/01/17 Omeprazole 20 mg PO BID 10/30/16 05/06/17 Pravastatin Sodium [Pravachol] 10 mg PO DAILY 10/30/16 05/06/17 metHOTREXate sodium [Methotrexate] 15 mg PO TH 10/30/16 05/06/17 Ranitidine HCl 150 mg PO BID PRN 11/02/16 05/06/17 Allergies Allergy/AdvReac Type Severity Reaction Status Date / Time Iodinated Contrast Media Allergy Itching Verified 06/19/21 10:01 [Iodinated Contrast Media - Oral and] Tetanus Vaccines and Toxoid Allergy Swelling Verified 06/19/21 10:01 Review of Systems ROS Statement: Those systems with pertinent positive or pertinent negative responses have been documented in the HPI. ROS Other: All systems not noted in ROS Statement are negative. Constitutional: Denies: fever Eyes: Denies: eye pain ENT: Denies: ear pain Respiratory: Reports: as per HPI. Denies: cough Cardiovascular: Reports: as per HPI, chest pain Endocrine: Reports: fatigue Gastrointestinal: Reports: nausea, diarrhea. Denies: abdominal pain Genitourinary: Denies: dysuria Musculoskeletal: Denies: back pain Skin: Denies: rash Neurological: Denies: weakness Past Medical History Past Medical History: Chest Pain / Angina, Deep Vein Thrombosis (DVT), GERD/Reflux, Hyperlipidemia, Hypertension, Rheumatoid Arthritis (RA), Sleep Apnea/CPAP/BIPAP, Syncope Additional Past Medical History / Comment(s): Rt. arm DVT 40 yrs ago, IBS, USES CPAP History of Any Multi-Drug Resistant Organisms: None Reported Date of last positivie culture/infection: None MDRO Source:: None Past Surgical History: Cholecystectomy, Tubal Ligation Additional Past Surgical History / Comment(s): COLONOSCOPY AND EGD Past Anesthesia/Blood Transfusion Reactions: No Reported Reaction Past Psychological History: Anxiety Smoking Status: Never smoker Past Alcohol Use History: Occasional Past Drug Use History: None Reported - Past Family History Father Family Medical History: Cancer Mother Family Medical History: Hypertension Brother(s) Additional Family Medical History / Comment(s): kidney transplant Sister(s) Family Medical History: Cancer Additional Family Medical History / Comment(s): sister X3 breast CA Daughter(s) Family Medical History: Cancer General Exam Limitations: no limitations General appearance: alert, in no apparent distress Head exam: Present: normocephalic Eye exam: Present: normal appearance Neck exam: Present: normal inspection Respiratory exam: Present: normal lung sounds bilaterally Cardiovascular Exam: Present: regular rate, normal rhythm, systolic murmur (Patient believes this is chronic) Expanded Peripheral pulses: 2+: Radial (R), Radial (L), Posterior Tibialis (R), Posterior Tibialis (L) GI/Abdominal exam: Present: soft. Absent: tenderness Extremities exam: Present: normal inspection. Absent: pedal edema, calf tenderness Neurological exam: Present: alert Psychiatric exam: Present: normal affect, normal mood Skin exam: Present: normal color Course Vital Signs 06/19/21 06/19/21 10:01 11:59 Temperature 98.1 F Pulse Rate 74 63 Respiratory 18 18 Rate Blood Pressure 153/68 150/72 O2 Sat by Pulse 94 L 97 Oximetry EKG Findings - EKG Comments: EKG Findings:: Sinus rhythm with rate of 69. TX 162. QRS 86. QT 382. QTC 409. Normal axis. Normal QRS. No acute ST change. Medical Decision Making - Medical Decision Making Patient reevaluated and resting comfortably in bed. Symptoms improved with nitroglycerin. Patient updated on results and plan. Case discussed with Dr. Siddiqi, who will admit his patient. - Lab Data Result diagrams: 06/19/21 10:22 06/19/21 10:22 Lab Results 06/19/21 06/19/21 06/19/21 Range/Units 10:22 10:22 10:22 WBC 7.2 (3.8-10.6) k/uL RBC 3.45 L (3.80-5.40) m/uL Hgb 11.4 (11.4-16.0) gm/dL Hct 33.5 L (34.0-46.0) % MCV 97.0 (80.0-100.0) fL MCH 33.0 (25.0-35.0) pg MCHC 34.0 (31.0-37.0) g/dL RDW 13.2 (11.5-15.5) % Plt Count 282 (150-450) k/uL MPV 7.0 Neutrophils % 76 % Lymphocytes % 19 % Monocytes % 4 % Eosinophils % 0 % Basophils % 0 % Neutrophils # 5.4 (1.3-7.7) k/uL Lymphocytes # 1.4 (1.0-4.8) k/uL Monocytes # 0.3 (0-1.0) k/uL Eosinophils # 0.0 (0-0.7) k/uL Basophils # 0.0 (0-0.2) k/uL PT 9.7 (9.0-12.0) sec INR 0.9 (<1.2) APTT 22.6 (22.0-30.0) sec D-Dimer 0.82 H (<0.60) mg/L FEU Sodium 142 (137-145) mmol/L Potassium 4.2 (3.5-5.1) mmol/L Chloride 109 H (98-107) mmol/L Carbon Dioxide 22 (22-30) mmol/L Anion Gap 11 mmol/L BUN 33 H (7-17) mg/dL Creatinine 1.23 H (0.52-1.04) mg/dL Est GFR (CKD-EPI)AfAm 51 (>60 ml/min/1.73 sqM) Est GFR (CKD-EPI)NonAf 44 (>60 ml/min/1.73 sqM) Glucose 115 H (74-99) mg/dL Calcium 10.1 (8.4-10.2) mg/dL Magnesium 2.2 (1.6-2.3) mg/dL Total Bilirubin 0.1 L (0.2-1.3) mg/dL AST 25 (14-36) U/L ALT 19 (4-34) U/L Alkaline Phosphatase 38 (38-126) U/L Troponin I (0.000-0.034) ng/mL NT-Pro-B Natriuret Pep pg/mL Total Protein 6.9 (6.3-8.2) g/dL Albumin 3.9 (3.5-5.0) g/dL 06/19/21 06/19/21 Range/Units 10:22 10:22 WBC (3.8-10.6) k/uL RBC (3.80-5.40) m/uL Hgb (11.4-16.0) gm/dL Hct (34.0-46.0) % MCV (80.0-100.0) fL MCH (25.0-35.0) pg MCHC (31.0-37.0) g/dL RDW (11.5-15.5) % Plt Count (150-450) k/uL MPV Neutrophils % % Lymphocytes % % Monocytes % % Eosinophils % % Basophils % % Neutrophils # (1.3-7.7) k/uL Lymphocytes # (1.0-4.8) k/uL Monocytes # (0-1.0) k/uL Eosinophils # (0-0.7) k/uL Basophils # (0-0.2) k/uL PT (9.0-12.0) sec INR (<1.2) APTT (22.0-30.0) sec D-Dimer (<0.60) mg/L FEU Sodium (137-145) mmol/L Potassium (3.5-5.1) mmol/L Chloride (98-107) mmol/L Carbon Dioxide (22-30) mmol/L Anion Gap mmol/L BUN (7-17) mg/dL Creatinine (0.52-1.04) mg/dL Est GFR (CKD-EPI)AfAm (>60 ml/min/1.73 sqM) Est GFR (CKD-EPI)NonAf (>60 ml/min/1.73 sqM) Glucose (74-99) mg/dL Calcium (8.4-10.2) mg/dL Magnesium (1.6-2.3) mg/dL Total Bilirubin (0.2-1.3) mg/dL AST (14-36) U/L ALT (4-34) U/L Alkaline Phosphatase (38-126) U/L Troponin I <0.012 (0.000-0.034) ng/mL NT-Pro-B Natriuret Pep 497 pg/mL Total Protein (6.3-8.2) g/dL Albumin (3.5-5.0) g/dL - Radiology Data Radiology results: image reviewed (Chest x-ray shows no acute process) Disposition Clinical Impression: Chest pain Disposition: ADMITTED IP TO THIS HOSP Is patient prescribed a controlled substance at d/c from ED?: No Referrals: Jomar Siddiqi MD [Primary Care Provider] - 1-2 days Decision Time: 12:03
[2021-06-19 10:38] LABS: Basophils % (A) 0 %; Eosinophils % (A) 0 %; HCT 33.5 % (34.0-46.0); HGB 11.4 gm/dL (11.4-16.0); Lymphocytes # (A) 1.4 k/uL (1.0-4.8); Lymphocytes % (A) 19 %; Monocytes # (A) 0.3 k/uL (0-1.0); Monocytes % (A) 4 %; Neutrophils # (A) 5.4 k/uL (1.3-7.7); Neutrophils % (A) 76 %; Platelet Count 282 k/uL (150-450); RBC 3.45 m/uL (3.80-5.40); RDW 13.2 % (11.5-15.5); WBC 7.2 k/uL (3.8-10.6)
--- NOTE | 2021-06-19 10:45 | XR ---
EXAMINATION TYPE: XR chest 2V DATE OF EXAM: 06/19/2021 COMPARISON: 04/25/2019 HISTORY: Shortness of breath TECHNIQUE: Frontal and lateral views of the chest are obtained. FINDINGS: Scattered senescent parenchymal changes noted. Hyperinflation compatible with COPD. No evidence for infiltrate. No evidence for atelectasis. Heart size is stable. Mediastinal structures are stable and grossly unremarkable. No evidence for hilar prominence. Degenerative changes dorsal spine. IMPRESSION: 1. No evidence for acute pulmonary disease.
[2021-06-19 10:56] LABS: INR 0.9 (<1.2); Partial Thromboplastin Time 22.6 sec (22.0-30.0); Prothrombin Time 9.7 sec (9.0-12.0)
[2021-06-19 11:02] LABS: Albumin 3.9 g/dL (3.5-5.0); Calcium 10.1 mg/dL (8.4-10.2); Magnesium 2.2 mg/dL (1.6-2.3); Potassium 4.2 mmol/L (3.5-5.1); Total Bilirubin 0.1 mg/dL (0.2-1.3); Total Protein 6.9 g/dL (6.3-8.2)
[2021-06-19] MEDS ORDERED: ACETAMINOPHEN TAB 325 MG TAB PO STA (11:36)
[2021-06-19] MEDS ORDERED: FAMOTIDINE 20 MG/2 ML VIAL IV STA (12:03)
[2021-06-19] MEDS ORDERED: diphenhydrAMINE 50 MG/ML 1 ML VIAL IVP STA (12:03)
[2021-06-19] MEDS ORDERED: methylPREDNISolone SOD SUCCI 125 MG/2 ML VIAL IV STA (12:03)
[2021-06-19] MEDS ORDERED: NITROGLYCERIN SL TABS 0.4 MG TAB SUBLINGUAL PRN (12:04)
--- NOTE | 2021-06-19 14:02 | CT ---
CT CHEST FOR PULMONARY EMBOLISM. EXAMINATION TYPE: CT angio chest DATE OF EXAM: 06/19/2021 INDICATION: Chest pain with shortness of breath CT DLP: 404.5 mGycm, Automated exposure control for dose reduction was used. CONTRAST: Patient injected with 100 mL of Isovue 370. COMPARISON: None TECHNIQUE: CT of the chest is performed on a spiral scan at 2 mm thick sections. Study is performed with intravenous contrast timed for evaluation for pulmonary embolism. This will limit additional po rtions of the evaluation. 3-D MIP images reconstructed by the technologist are reviewed on the compu ter in the coronal and sagittal planes. FINDINGS: No persistent filling defects are evident to suggest an acute pulmonary embolism. No mediastinal or hilar adenopathy enlarged by CT criteria is evident. The ascending aorta diameter at the level of the main pulmonary artery is 3.4 cm. The main pulmonary artery diameter at the bifur cation is 3.4 cm. Lung windows are clear. Limited CT section through the upper abdomen are unremarkable. IMPRESSIONS: 1. No acute pulmonary embolism. 2. No acute pulmonary process.
[2021-06-19] MEDS: NITROGLYCERIN OINT 1 INCH/GM PACKET TOPICAL SCH ×2 (17:21→23:59)
--- NOTE | 2021-06-19 17:38 | P.HPIM ---
History of Present Illness H&P Date: 06/19/21 Chief Complaint: Chest pain Leora Mckinley, is a 71-year-old female who presented to [facility] emergency room with a chief complaint of chest pain She was evaluated in the emergency room vital examination on presentation revealed a temperature of 98.1 pulse 74 respiration 18 and blood pressure 153/68 pulse ox 94% on room air Laboratory data revealed a white blood count of 7.2 hemoglobin 11.4 platelet count 282 BUN 33 creatinine 1.23 d-dimer 0.82 troponin level was less than 0.012 Testing in the emergency room revealed EKG did not reveal any evidence of acute ischemic changes, chest x-ray was normal, and CT angiogram of the chest did not reveal any evidence of pulmonary embolism. Patient was admitted to medical floor for further evaluation and treatment Past medical history is significant for hypertension, hyperlipidemia, gastroesophageal reflux disease, rheumatoid arthritis, and depression. Past Medical History Past Medical History: Chest Pain / Angina, Deep Vein Thrombosis (DVT), GERD/Reflux, Hyperlipidemia, Hypertension, Rheumatoid Arthritis (RA), Sleep Apnea/CPAP/BIPAP, Syncope Additional Past Medical History / Comment(s): Rt. arm DVT 40 yrs ago, IBS, USES CPAP History of Any Multi-Drug Resistant Organisms: None Reported Date of last positivie culture/infection: None MDRO Source:: None Past Surgical History: Cholecystectomy, Tubal Ligation Additional Past Surgical History / Comment(s): COLONOSCOPY AND EGD Past Anesthesia/Blood Transfusion Reactions: No Reported Reaction Past Psychological History: Anxiety Smoking Status: Never smoker Past Alcohol Use History: Occasional Past Drug Use History: None Reported - Past Family History Father Family Medical History: Cancer Mother Family Medical History: Hypertension Brother(s) Additional Family Medical History / Comment(s): kidney transplant Sister(s) Family Medical History: Cancer Additional Family Medical History / Comment(s): sister X3 breast CA Daughter(s) Family Medical History: Cancer Medications and Allergies Home Medications Medication Instructions Recorded Confirmed Type Aspirin [Adult Low Dose Aspirin EC] 81 mg PO HS 10/30/16 06/19/21 History Escitalopram Oxalate [Lexapro] 10 mg PO DAILY 10/30/16 06/19/21 History Folic Acid 2 mg PO DAILY 10/30/16 06/19/21 History Hydroxychloroquine Sulfate 200 mg PO BID 10/30/16 06/19/21 History [Plaquenil] Loperamide [Imodium] 2 mg PO DAILY 10/30/16 06/19/21 History Losartan/Hydrochlorothiazide 1 tab PO DAILY 10/30/16 06/19/21 History [Losartan-Hctz 100-12.5 mg Tab] Omeprazole 20 mg PO BID 10/30/16 06/19/21 History Pravastatin Sodium [Pravachol] 20 mg PO DAILY 10/30/16 06/19/21 History metHOTREXate sodium [Methotrexate] 20 mg PO TH 10/30/16 06/19/21 History Calcium Carbonate/Vitamin D3 2 cap PO BID 06/19/21 06/19/21 History [Calcium 600-Vit D3 12.5 Mcg (500 Iu)] Ferrous Sulfate [Feosol] 325 mg PO DAILY 06/19/21 06/19/21 History Glucosamine/MSM/Chrond/D3/Bosw 1 tab PO BID 06/19/21 06/19/21 History [Jjngawaqemn-Cviqxg-Efw D3 Cplt] Multivit with Calcium,Iron,Min 1 tab PO DAILY 06/19/21 06/19/21 History [Women's Multivitamin] predniSONE See Taper PO HS 06/19/21 06/19/21 History Allergies Allergy/AdvReac Type Severity Reaction Status Date / Time Iodinated Contrast Media Allergy Itching/Roddy Verified 06/19/21 12:21 [Iodinated Contrast Media - h/Hives Oral and] Tetanus Vaccines and Toxoid Allergy Swelling/Ra Verified 06/19/21 12:21 sh/Hives Physical Exam Vitals: Vital Signs Temp Pulse Resp BP Pulse Ox 06/19/21 15:29 75 20 169/76 95 06/19/21 11:59 63 18 150/72 97 06/19/21 10:01 98.1 F 74 18 153/68 94 L Intake and Output 06/19/21 06/19/21 06/19/21 06:59 14:59 22:59 Other: Weight 88.451 kg In general patient is alert and oriented x 3 in no distress HEENT head normocephalic and atraumatic Neck is supple no JVD no goiter no lymphadenopathy no carotid bruit Chest examination is clear to auscultation no crackles no wheezing Cardiac exam reveals regular heart sounds S1 and S2 no gallops no murmurs Abdomen is soft nontender no organomegaly with normal bowel sounds Extremity exam reveals no edema no cyanosis or clubbing Neurological examination reveals no gross focal deficits Results CBC & Chem 7: 06/19/21 10:22 06/19/21 10:22 Labs: Abnormal Lab Results - Last 24 Hours (Table) 06/19/21 06/19/21 06/19/21 Range/Units 10:22 10:22 10:22 RBC 3.45 L (3.80-5.40) m/uL Hct 33.5 L (34.0-46.0) % D-Dimer 0.82 H (<0.60) mg/L FEU Chloride 109 H (98-107) mmol/L BUN 33 H (7-17) mg/dL Creatinine 1.23 H (0.52-1.04) mg/dL Glucose 115 H (74-99) mg/dL Total Bilirubin 0.1 L (0.2-1.3) mg/dL Assessment and Plan Plan: Episode of chest pain, EKG done in the emergency room and first set of troponin are negative Elevated d-dimer, computed tomography scan angiogram of the chest done in the emergency room and was negative for pulmonary embolism Underlying history of hypertension Underlying history of hyperlipidemia maintained on Pravachol Underlying history of depression Underlying history of gastroesophageal reflux disease maintained on omeprazole Underlying history of anemia, maintained on iron supplements Underlying history of rheumatoid arthritis At this time patient is admitted to telemetry floor Will continue to monitor troponin level At this time pain is mostly in the epigastric area will add amylase, lipase, and abdomen ultrasound Cardiology consultation was requested
[2021-06-19] MEDS: PANTOPRAZOLE 40 MG TABLET PO SCH (18:13)
[2021-06-19 18:41] LABS: Amylase 48 U/L (30-110); Lipase 135 U/L (23-300)
[2021-06-19] MEDS ORDERED: MSM PO SCH (21:00)
[2021-06-19] MEDS ORDERED: [UNRECOGNIZED DRUG - OTHER] PO SCH (21:00)
[2021-06-19] MEDS ORDERED: CHROND PO SCH (21:00)
[2021-06-19] MEDS ORDERED: GLUCOSAMINE PO SCH (21:00)
[2021-06-19] MEDS ORDERED: ASPIRIN 81 MG PO SCH (21:00)
[2021-06-19] MEDS ORDERED: D3 PO SCH (21:00)
[2021-06-19] MEDS: predniSONE 5 MG TAB PO SCH (22:21)
[2021-06-19] MEDS: CALCIUM CARB-VIT D 500 MG-5 MCG TAB PO SCH (22:21)
[2021-06-19] MEDS: HYDROXYCHLOROQUINE SULFATE 200 MG TAB PO SCH (22:21)
[2021-06-20] MEDS: NITROGLYCERIN OINT 1 INCH/GM PACKET TOPICAL SCH ×2 (01:03→13:16)
--- NOTE | 2021-06-20 02:02 | US ---
EXAMINATION TYPE: US abdomen complete DATE OF EXAM: 06/19/2021 COMPARISON: 05/03/2019 CLINICAL HISTORY: Epigastric pain. epigastric pain, cholecystectomy EXAM MEASUREMENTS: Liver Length: 14.9 cm Gallbladder Wall: Surgically absent CBD: 0.9 cm Spleen: 7.6 cm Right Kidney: 10.7 x 4.2 x 4.0 cm Left Kidney: 10.8 x 4.9 x 4.4 cm Pancreas: Tail obscured by overlying bowel gas. duct = 0.3cm Liver: appears wnl Gallbladder: Surgically absent Evidence for sonographic Thomas's sign: no CBD: wnl for postcholecystectomy Spleen: 2 hyperechoic areas visualized = 0.8cm and 1.0cm as on prior exam Right Kidney: no evidence of hydronephrosis Left Kidney: cystic area = 1.7 x 1.7 x 1.8cm Upper IVC: wnl Abd Aorta: bifurcation obscured by overlying bowel content. visualized portions appear wnl IMPRESSION: No renal mass or obstruction. Hyperechoic foci are small in the spleen and could be granulomas withou t change. Cholecystectomy. No dilated ducts.
[2021-06-20 07:37] VITALS: RESP 16
[2021-06-20] MEDS ORDERED: ASPIRIN 325 MG TAB PO SCH (09:00)
[2021-06-20] MEDS ORDERED: LOSARTAN 50 MG TAB PO SCH (09:00)
[2021-06-20] MEDS ORDERED: FERROUS SULFATE 325 MG TAB PO SCH (09:00)
[2021-06-20] MEDS ORDERED: LOPERAMIDE 2 MG CAP PO SCH (09:00)
[2021-06-20] MEDS ORDERED: MULTIVITAMINS, THERA 1 EACH TAB PO SCH (09:00)
[2021-06-20] MEDS ORDERED: ESCITALOPRAM 10 MG TAB PO SCH (09:00)
[2021-06-20] MEDS ORDERED: PRAVASTATIN SODIUM 20 MG TAB PO SCH (09:00)
[2021-06-20] MEDS: PANTOPRAZOLE 40 MG TABLET PO SCH (09:00)
[2021-06-20] MEDS ORDERED: FOLIC ACID 1 MG TAB PO SCH (09:00)
[2021-06-20] MEDS ORDERED: hydroCHLOROthiazide 12.5 MG CAP PO SCH (09:00)
[2021-06-20] MEDS: predniSONE 5 MG TAB PO SCH (09:01)
[2021-06-20] MEDS: CALCIUM CARB-VIT D 500 MG-5 MCG TAB PO SCH (09:01)
[2021-06-20] MEDS: HYDROXYCHLOROQUINE SULFATE 200 MG TAB PO SCH (09:01)
--- NOTE | 2021-06-20 11:03 | P.CRDCN ---
History of Present Illness Consult date: 06/20/21 History of present illness: HISTORY OF PRESENT ILLNESS: This is a 71-year-old female with a past medical history significant for nonobstructive coronary artery disease, hypertension, hyperlipidemia, obstructive sleep apnea, and rheumatoid arthritis. Patient follows in the office with Dr. Alanis. We have been asked to see the patient in consultation for chest pain. Patient examined at the bedside. Patient states she was on vacation last week in [place] and did a lot of walking when she was there. She states that she was having chest discomfort everyday while on vacation. She describes the pain as a burning sensation in the epigastric region that has gotten worse over the past couple days. She also reports having discomfort in the upper part of her bilateral arms. She also reports having nausea. She states she has had diarrhea for the last 2 days. She had 8 episodes of diarrhea yesterday was in a 4 hour period. She states the pain is relieved with Mylanta and drinking milk. She also reports having black stools for the past week. She denies any use of Pepto-Bismol. She states she has been taking Motrin every day due to her rheumatoid arthritis. Patient denies increased pain with deep inspiration. She does report pain with palpation of the epigastric region. EKG reveals sinus mechanism with no signs of acute ischemia Chest xray negative for acute process Laboratory data: WBC 7.2. Hemoglobin 11.4. Platelet count 282. D-dimer 0.2. Sodium 142. Potassium 4.2. BUN 33. Creatinine 1.23. Magnesium 2.2. ProBNP 4 97. Troponin negative 3. Current home cardiac medications include aspirin 81 mg daily, losartan/hy drochlorothiazide 10-12.5mg daily, pravastatin 20 mg daily Most recent echocardiogram obtained in April 2020 revealed ejection fraction 55%. Rxuf-rd-[id number] mitral regurgitation. Mild tricuspid regurgitation. Cardiac catheterization history: October 2016 revealing 40% stenosis of LAD and 40% of diagonal. This was unchanged from her cardiac catheterization in 2008. REVIEW OF SYSTEMS: At the time of my exam: CONSTITUTIONAL: Denies fever or chills. HEENT: Denies blurred vision, vision changes, or eye pain. Denies hemoptysis CARDIOVASCULAR: Denies chest pain. Denies orthopnea. Denies PND. Denies palpitations RESPIRATORY: Denies shortness of breath. GASTROINTESTINAL: Denies abdominal pain. Denies nausea or vomiting. HEMATOLOGIC: Denies bleeding disorders. GENITOURINARY: Denies any blood in urine. SKIN: Denies pruitis. Denies rash. PHYSICAL EXAM: VITAL SIGNS: Reviewed. GENERAL: Well-developed in no acute distress. HEENT: Head is normocephalic. Pupils are equal, round. Sclerae anicteric. Mucous membranes of the mouth are moist. Neck supple. No JVD or thyromegaly LUNGS: Respirations even and unlabored. Lungs essentially clear to auscultation bilaterally. HEART: Regular rate and rhythm. S1 and S2 heard. Systolic murmur. ABDOMEN: Soft. Nondistended. Nontender. EXTREMITIES: Normal range of motion. No clubbing or cyanosis. Peripheral pulses intact. No lower extremity edema NEUROLOGIC: Awake and alert. Oriented x 3. ASSESSMENT: Chest pain, atypical, troponin negative 3 Nausea, vomiting, diarrhea, and black stools Acute kidney injury Nonobstructive coronary artery disease Hypertension Hyperlipidemia Obstructive sleep apnea Rheumatoid arthritis PLAN: An acute coronary event has been ruled out Resume home cardiac medications Obtain 2D echo to assess cardiac structure and function Further workup of GI symptoms per internal medicine No further inpatient cardiac workup recommended Patient to follow up with Dr. Alanis Nurse practitioner note has been reviewed by physician. Signing provider agrees with the documented findings, assessment, and plan of care. Past Medical History Past Medical History: Chest Pain / Angina, Deep Vein Thrombosis (DVT), GERD/Reflux, Hyperlipidemia, Hypertension, Rheumatoid Arthritis (RA), Sleep Apnea/CPAP/BIPAP, Syncope Additional Past Medical History / Comment(s): Rt. arm DVT 40 yrs ago, IBS, USES CPAP History of Any Multi-Drug Resistant Organisms: None Reported Date of last positivie culture/infection: None MDRO Source:: None Past Surgical History: Cholecystectomy, Tubal Ligation Additional Past Surgical History / Comment(s): COLONOSCOPY AND EGD Past Anesthesia/Blood Transfusion Reactions: No Reported Reaction Past Psychological History: Anxiety Smoking Status: Never smoker Past Alcohol Use History: Occasional Past Drug Use History: None Reported - Past Family History Father Family Medical History: Cancer Mother Family Medical History: Hypertension Brother(s) Additional Family Medical History / Comment(s): kidney transplant Sister(s) Family Medical History: Cancer Additional Family Medical History / Comment(s): sister X3 breast CA Daughter(s) Family Medical History: Cancer Medications and Allergies Home Medications Medication Instructions Recorded Confirmed Type Aspirin [Adult Low Dose Aspirin EC] 81 mg PO HS 10/30/16 06/19/21 History Escitalopram Oxalate [Lexapro] 10 mg PO DAILY 10/30/16 06/19/21 History Folic Acid 2 mg PO DAILY 10/30/16 06/19/21 History Hydroxychloroquine Sulfate 200 mg PO BID 10/30/16 06/19/21 History [Plaquenil] Loperamide [Imodium] 2 mg PO DAILY 10/30/16 06/19/21 History Losartan/Hydrochlorothiazide 1 tab PO DAILY 10/30/16 06/19/21 History [Losartan-Hctz 100-12.5 mg Tab] Omeprazole 20 mg PO BID 10/30/16 06/19/21 History Pravastatin Sodium [Pravachol] 20 mg PO DAILY 10/30/16 06/19/21 History metHOTREXate sodium [Methotrexate] 20 mg PO TH 10/30/16 06/19/21 History Calcium Carbonate/Vitamin D3 2 cap PO BID 06/19/21 06/19/21 History [Calcium 600-Vit D3 12.5 Mcg (500 Iu)] Ferrous Sulfate [Feosol] 325 mg PO DAILY 06/19/21 06/19/21 History Glucosamine/MSM/Chrond/D3/Bosw 1 tab PO BID 06/19/21 06/19/21 History [Opnpwkonyto-Soilsc-Byr D3 Cplt] Multivit with Calcium,Iron,Min 1 tab PO DAILY 06/19/21 06/19/21 History [Women's Multivitamin] predniSONE See Taper PO HS 06/19/21 06/19/21 History Allergies Allergy/AdvReac Type Severity Reaction Status Date / Time Iodinated Contrast Media Allergy Itching/Roddy Verified 06/19/21 12:21 [Iodinated Contrast Media - h/Hives Oral and] Tetanus Vaccines and Toxoid Allergy Swelling/Ra Verified 06/19/21 12:21 sh/Hives Physical Exam Vitals: Vital Signs Temp Pulse Pulse Resp BP BP Pulse Ox 06/20/21 07:36 98.1 F 59 L 16 150/64 96 06/20/21 06:00 98 F 58 L 22 137/63 97 06/20/21 03:00 54 L 22 114/70 98 06/19/21 22:29 82 18 111/56 98 06/19/21 17:22 64 20 163/71 96 06/19/21 15:29 75 20 169/76 95 06/19/21 11:59 63 18 150/72 97 06/19/21 10:01 98.1 F 74 18 153/68 94 L Results 06/19/21 10:22 06/19/21 10:22 Cardiac Enzymes 06/19/21 06/19/21 06/19/21 Range/Units 10:22 10:22 15:15 AST 25 (14-36) U/L Troponin I <0.012 <0.012 (0.000-0.034) ng/mL 06/19/21 Range/Units 18:12 AST (14-36) U/L Troponin I <0.012 (0.000-0.034) ng/mL Coagulation 06/19/21 Range/Units 10:22 PT 9.7 (9.0-12.0) sec APTT 22.6 (22.0-30.0) sec CBC 06/19/21 Range/Units 10:22 WBC 7.2 (3.8-10.6) k/uL RBC 3.45 L (3.80-5.40) m/uL Hgb 11.4 (11.4-16.0) gm/dL Hct 33.5 L (34.0-46.0) % Plt Count 282 (150-450) k/uL Comprehensive Metabolic Panel 06/19/21 Range/Units 10:22 Sodium 142 (137-145) mmol/L Potassium 4.2 (3.5-5.1) mmol/L Chloride 109 H (98-107) mmol/L Carbon Dioxide 22 (22-30) mmol/L BUN 33 H (7-17) mg/dL Creatinine 1.23 H (0.52-1.04) mg/dL Glucose 115 H (74-99) mg/dL Calcium 10.1 (8.4-10.2) mg/dL AST 25 (14-36) U/L ALT 19 (4-34) U/L Alkaline Phosphatase 38 (38-126) U/L Total Protein 6.9 (6.3-8.2) g/dL Albumin 3.9 (3.5-5.0) g/dL Current Medications Generic Name Dose Route Start Last Admin Trade Name Francesco PRN Reason Stop Dose Admin Aspirin 81 mg 06/19/21 21:00 06/19/21 22:21 Aspirin 81 Mg PO 81 mg HS [facility] Administration Calcium Carbonate 1 each 06/19/21 21:00 06/19/21 22:21 Calcium Carb-Vit D 500 Mg-5 Mcg Tab PO 1 each BID [facility] Administration Escitalopram Oxalate 10 mg 06/20/21 09:00 Escitalopram 10 Mg Tab PO DAILY [facility] Ferrous Sulfate 325 mg 06/20/21 09:00 Ferrous Sulfate 325 Mg Tab PO DAILY [facility] Folic Acid 2 mg 06/20/21 09:00 Folic Acid 1 Mg Tab PO DAILY [facility] Hydrochlorothiazide 12.5 mg 06/20/21 09:00 Hydrochlorothiazide 12.5 Mg Cap PO DAILY [facility] Hydroxychloroquine Sulfate 200 mg 06/19/21 21:00 06/19/21 22:21 Hydroxychloroquine Sulfate 200 Mg Tab PO 200 mg BID [facility] Administration Loperamide HCl 2 mg 06/20/21 09:00 Loperamide 2 Mg Cap PO DAILY [facility] Losartan Potassium 100 mg 06/20/21 09:00 Losartan 50 Mg Tab PO DAILY [facility] Methotrexate 20 mg 06/20/21 16:51 Methotrexate Sodium 2.5 Mg Tab PO TH [facility] Multivitamins 1 each 06/20/21 09:00 Multivitamins, Thera 1 Each Tab PO DAILY [facility] Nitroglycerin 0.4 mg 06/19/21 12:04 Nitroglycerin Sl Tabs 0.4 Mg Tab SUBLINGUAL Q5M PRN Chest Pain Nitroglycerin 1 inch 06/19/21 12:15 06/20/21 01:03 Nitroglycerin Oint 1 Inch/Gm Packet TOPICAL Not Given Q6HR [facility] Pantoprazole Sodium 40 mg 06/19/21 17:30 06/19/21 18:13 Pantoprazole 40 Mg Tablet PO 40 mg BID@0730,1730 [facility] Administration Pravastatin Sodium 20 mg 06/20/21 09:00 Pravastatin Sodium 20 Mg Tab PO DAILY [facility] Prednisone 5 mg 06/19/21 21:00 06/19/21 22:21 Prednisone 5 Mg Tab PO 5 mg HS [facility] Administration 06/19/21 10:22 06/19/21 10:22
--- NOTE | 2021-06-20 11:10 | ECHOF ---
Referral Reason:chest pain MEASUREMENTS -------- HEIGHT: 167.6 cm WEIGHT: 88.5 kg BP: 150/64 RVIDd: 3.5 cm (< 3.3) IVSd: 1.2 cm (0.6 - 1.1) LVIDd: 5.0 cm (3.9 - 5.3) LVPWd: 1.3 cm (0.6 - 1.1) IVSs: 1.9 cm LVIDs: 3.5 cm LVPWs: 1.9 cm LAESV Index (A-L): 44.95 ml/m Ao Diam: 2.5 cm (2.0 - 3.7) AV Cusp: 1.6 cm (1.5 - 2.6) MV EXCURSION: 14.054 mm (> 18.000) MV EF SLOPE: 73 mm/s (70 - 150) EPSS: 0.6 cm MV E Nate: 1.35 m/s MV DecT: 180 ms MV A Nate: 1.04 m/s MV E/A Ratio: 1.29 AV maxP.58 mmHg AV meanP.39 mmHg RAP: 5.00 mmHg RVSP: 45.32 mmHg FINDINGS -------- Sinus rhythm. This was a technically adequate study. The left ventricular size is normal. There is mild concentric left ventricular hypertrophy. Overa ll left ventricular systolic function is normal with, an EF between 55 - 60 %. The diastolic fillin g pattern is normal for the age of the patient 19.03. The right ventricle is mildly enlarged. LA is moderately dilated 34-39 ml/m2 The right atrial size is normal. Interatrial and interventricular septum intact. There is mild aortic valve sclerosis. There is no evidence of aortic regurgitation. There is mild aortic stenosis present. Peak/mean gradient across the Aortic Valve is 23.58mmHg / 13.39mmHg. Mild mitral annular calcification present. Mtxv-tr-yrxpzxal mitral regurgitation is present. Ncct-jg-mfepffor tricuspid regurgitation present. There is mild to moderate pulmonary hypertension. The right ventricular systolic pressure, as measured by Doppler, is 45.32mmHg. Trace/mild (physiologic) pulmonic regurgitation. The aortic root size is normal. Normal inferior vena cava with normal inspiratory collapse consistent with estimated right atrial pre ssure of 5 mmHg. There is no pericardial effusion. CONCLUSIONS -------- 1. The left ventricular size is normal. 2. There is mild concentric left ventricular hypertrophy. 3. Overall left ventricular systolic function is normal with, an EF between 55 - 60 %. 4. The diastolic filling pattern is normal for the age of the patient 19.03 5. The right ventricle is mildly enlarged. 6. LA is moderately dilated 34-39 ml/m2 7. There is mild aortic valve sclerosis. 8. There is mild aortic stenosis present. 9. Peak/mean gradient across the Aortic Valve is 23.58mmHg / 13.39mmHg. 10. Mild mitral annular calcification present. 11. Uxai-eo-vzcegogk mitral regurgitation is present. 12. Eyov-vd-xcfcxcni tricuspid regurgitation present. 13. There is mild to moderate pulmonary hypertension. 14. The right ventricular systolic pressure, as measured by Doppler, is 45.32mmHg. 15. Trace/mild (physiologic) pulmonic regurgitation. OIL DISTRIBUTOR: Margie Smiley RDCS
[2021-06-20 11:44] LABS: Basophils # (A) 0.01 X 10*3/uL (0.00-0.10); Basophils % (A) 0.1 %; Eosinophils # (A) 0 X 10*3/uL (0.04-0.35); Eosinophils % (A) 0 %; HCT 32.2 % (37.2-46.3); HGB 10.2 g/dL (12.0-15.0); Lymphocytes # (A) 1.39 X 10*3/uL (0.90-5.00); Lymphocytes % (A) 15.8 %; MCH 31.6 pg (27.0-32.0); MCHC 31.7 g/dL (32.0-37.0); MCV 99.7 fL (80.0-97.0); Mean Platelet Volume 9.3 fL (9.5-12.2); Monocytes # (A) 0.52 X 10*3/uL (0.20-1.00); Monocytes % (A) 5.9 %; Neutrophils # (A) 6.84 X 10*3/uL (1.80-7.70); Neutrophils % (A) 77.7 %; Platelet Count 264 X 10*3/uL (140-440); RBC 3.23 X 10*6/uL (4.10-5.20); RDW 13.5 % (11.5-14.5)
[2021-06-20] MEDS ORDERED: ACETAMINOPHEN TAB 325 MG TAB PO PRN (12:15)
[2021-06-20 13:13] LABS: African American GFR (CKD) 47.5 (60.0-200.0); Albumin/Globulin Ratio 1.6 (1.60-3.17); BUN/Creat Ratio 24.62 Ratio (12.00-20.00); Calcium 9.6 mg/dL (8.7-10.3); Chol/HDL Ratio 2.83; Globulin 2.5 g/dL (1.6-3.3); LDL Cholesterol,Calculated 109.2 mg/dL (0.0-131.0); Potassium 4.3 mmol/L (3.5-5.5); Total Bilirubin 0.3 mg/dL (0.2-1.2); Total Protein 6.5 g/dL (6.2-8.2); VLDL Calculation 16.8 mg/dL (5.00-40.00)
[2021-06-20 14:27] VITALS: BP 107/59; PULSE 63; TEMP 97.8
--- NOTE | 2021-06-20 14:37 | P.DS ---
Providers Date of admission: 06/19/21 12:04 Attending physician: Jomar Siddiqi Primary care physician: Jomar Siddiqi [facility] Course: Diagnosis on discharge: Episode of chest pain, EKG done in the emergency room and first set of troponin are negative Elevated d-dimer, computed tomography scan angiogram of the chest done in the emergency room and was negative for pulmonary embolism Underlying history of hypertension Underlying history of hyperlipidemia maintained on Pravachol Underlying history of depression Underlying history of gastroesophageal reflux disease maintained on omeprazole Underlying history of anemia, maintained on iron supplements Underlying history of rheumatoid arthritis Hospital course: Leora Mckinley, is a 71-year-old female who presented to [facility] emergency room with a chief complaint of chest pain She was evaluated in the emergency room vital examination on presentation revealed a temperature of 98.1 pulse 74 respiration 18 and blood pressure 153/68 pulse ox 94% on room air Laboratory data revealed a white blood count of 7.2 hemoglobin 11.4 platelet count 282 BUN 33 creatinine 1.23 d-dimer 0.82 troponin level was less than 0.012 Testing in the emergency room revealed EKG did not reveal any evidence of acute ischemic changes, chest x-ray was normal, and CT angiogram of the chest did not reveal any evidence of pulmonary embolism. Patient was admitted to medical floor for further evaluation and treatment Past medical history is significant for hypertension, hyperlipidemia, gastroesophageal reflux disease, rheumatoid arthritis, and depression. On 06/20/2021 patient was seen and examined on the medical floor she is still complaining of epigastric pain otherwise she denies any complaints, there is no fever or chills no headache or dizziness no chest pain no shortness of breath no palpitation no cough no nausea or vomiting no abdominal pain no diarrhea no blood in the stools no burning with urination no frequency or urgency and no he maturia, there is no weakness or numbness in any of the extremities no change in vision speech or gait. Patient was evaluated by cardiology and was cleared for discharge, abdomen ultrasound was done and did not reveal any significant abnormality, amylase and lipase were within normal limits, possibility of peptic ulcer disease was discussed was patient, patient will need an EGD, however, sustain as inpatient waiting for EGD is not practical due to logistics, this may take several days, at this time patient is agreeable to increase her medications to protonix 40 mg twice daily and Carafate 1 g 4 times daily, will arrange for EGD as outpatient as soon as possible Plan - Discharge Summary Discharge Rx Participant: Yes New Discharge Prescriptions: New Sucralfate [Carafate] 1 gm PO ACHS 30 Days #120 tablet Pantoprazole [Protonix] 40 mg PO BID@0730,1730 tab Acetaminophen Tab [Tylenol] 650 mg PO Q6HR PRN tab PRN Reason: Fever and/ or Mild Pain Continue Hydroxychloroquine Sulfate [Plaquenil] 200 mg PO BID Aspirin [Adult Low Dose Aspirin EC] 81 mg PO HS Pravastatin Sodium [Pravachol] 20 mg PO DAILY metHOTREXate sodium [Methotrexate] 20 mg PO TH Folic Acid 2 mg PO DAILY Losartan/Hydrochlorothiazide [Losartan-Hctz 100-12.5 mg Tab] 1 tab PO DAILY Escitalopram Oxalate [Lexapro] 10 mg PO DAILY Loperamide [Imodium] 2 mg PO DAILY Calcium Carbonate/Vitamin D3 [Calcium 600-Vit D3 12.5 Mcg (500 Iu)] 2 cap PO BID Glucosamine/MSM/Chrond/D3/Bosw [Lsgrueapqwl-Gkohod-Bsp D3 Cplt] 1 tab PO BID Multivit with Calcium,Iron,Min [Women's Multivitamin] 1 tab PO DAILY predniSONE See Taper PO HS Ferrous Sulfate [Iron (65 MG Elemental)] 325 mg PO DAILY Discontinued Omeprazole 20 mg PO BID Discharge Medication List Aspirin [Adult Low Dose Aspirin EC] 81 mg PO HS 10/30/16 [History] Escitalopram Oxalate [Lexapro] 10 mg PO DAILY 10/30/16 [History] Folic Acid 2 mg PO DAILY 10/30/16 [History] Hydroxychloroquine Sulfate [Plaquenil] 200 mg PO BID 10/30/16 [History] Loperamide [Imodium] 2 mg PO DAILY 10/30/16 [History] Losartan/Hydrochlorothiazide [Losartan-Hctz 100-12.5 mg Tab] 1 tab PO DAILY 10/30/16 [History] Pravastatin Sodium [Pravachol] 20 mg PO DAILY 10/30/16 [History] metHOTREXate sodium [Methotrexate] 20 mg PO TH 10/30/16 [History] Calcium Carbonate/Vitamin D3 [Calcium 600-Vit D3 12.5 Mcg (500 Iu)] 2 cap PO BID 06/19/21 [History] Ferrous Sulfate [Iron (65 MG Elemental)] 325 mg PO DAILY 06/19/21 [History] Glucosamine/MSM/Chrond/D3/Bosw [Bdfafofqsra-Ppsnqf-Zrt D3 Cplt] 1 tab PO BID 06/19/21 [History] Multivit with Calcium,Iron,Min [Women's Multivitamin] 1 tab PO DAILY 06/19/21 [History] predniSONE See Taper PO HS 06/19/21 [History] Acetaminophen Tab [Tylenol] 650 mg PO Q6HR PRN tab 06/20/21 [Rx] Pantoprazole [Protonix] 40 mg PO BID@0730,1730 tab 06/20/21 [Rx] Sucralfate [Carafate] 1 gm PO ACHS 30 Days #120 tablet 06/20/21 [Rx] Follow up Appointment(s)/Referral(s): Jomar Siddiqi MD [Primary Care Provider] - 1-2 days
[2021-06-20] MEDS ORDERED: metHOTREXate sodium 2.5 MG TAB PO SCH (16:51)
== END 2021-06-20 15:32 | disposition home or self-care (01) ==
LOC: EC 10:00 → 6NMEDSUR 12:04
PROVIDERS: ADMIT Internal Medicine; ATTEND Internal Medicine
DX: R07.89 Other chest pain (principal); N17.9 Acute kidney failure, unspecified; R79.89 Other specified abnormal findings of blood chemistry; R10.13 Epigastric pain; I10 Essential (primary) hypertension; I25.10 Atherosclerotic heart disease of native coronary artery without angina pectoris; I08.1 Rheumatic disorders of both mitral and tricuspid valves; E78.5 Hyperlipidemia, unspecified; R19.5 Other fecal abnormalities; K58.0 Irritable bowel syndrome with diarrhea; R06.09 Other forms of dyspnea; R11.0 Nausea; R61 Generalized hyperhidrosis; K21.9 Gastro-esophageal reflux disease without esophagitis; M06.9 Rheumatoid arthritis, unspecified; G47.33 Obstructive sleep apnea (adult) (pediatric); D64.9 Anemia, unspecified; F41.9 Anxiety disorder, unspecified; F32.9 Major depressive disorder, single episode, unspecified; Z79.82 Long term (current) use of aspirin; Z79.1 Long term (current) use of non-steroidal anti-inflammatories (NSAID); Z79.899 Other long term (current) drug therapy; Z88.7 Allergy status to serum and vaccine; Z91.041 Radiographic dye allergy status; Z86.718 Personal history of other venous thrombosis and embolism; Z90.49 Acquired absence of other specified parts of digestive tract; Z98.51 Tubal ligation status; Z98.890 Other specified postprocedural states; Z80.3 Family history of malignant neoplasm of breast; Z82.49 Family history of ischemic heart disease and other diseases of the circulatory system; Z84.1 Family history of disorders of kidney and ureter
CPT/HCPCS: 96374; 96375; 99285; 36415; 93005 ×2; 93306; 85379; 83880; 80061; 80053 ×2; 82150; 83690; 83735; 84484; 85025 ×2; 85610; 85730; 71046; 76700; 71275; G0378 ×2; J1200; J2930; J7512 ×2; Q9967

== ENCOUNTER 2021-07-10 09:12 | Day surgery (SDC) | payer MEDICARE ==
[~2021-07-10 09:12] MED LIST changes: +LIDOCAINE 1% (10MG/ML) FOR IV START INTRADERMA PRN; -LIDOCAINE 1% 20 ML VIAL (10MG/ML) FOR IV START INTRADERMA PRN
[2021-07-10 09:50] VITALS: RESP 16; TEMP 98.2
[2021-07-10] MEDS ORDERED: PROPOFOL 10 MG/ML 20 ML VIAL IV ONE (10:40)
[2021-07-10] MEDS ORDERED: LIDOCAINE 1% INJ 10MG/ML (20 ML MDV) ONE (10:40)
--- NOTE | 2021-07-10 10:58 | P.PCN ---
Date of Procedure: 07/10/21 Procedure(s) Performed: BRIEF HISTORY: Patient is a 71-year-old, pleasant, female scheduled for an upper endoscopy as a part of evaluation of severe epigastric pain and chest pain for the last 2 months duration. She has long-standing history of GERD and has been on omeprazole 20 mg twice daily.. PROCEDURE PERFORMED: Esophagogastroduodenoscopy with biopsy. PREOPERATIVE DIAGNOSIS: Chronic epigastric pain and lower sternal chest pain of 2 months duration. IV sedation per anesthesia. PROCEDURE: After informed consent was obtained, the patient was brought into the endoscopy unit. IV sedation was administered by Anesthesia under continuous monitoring. Initially the Olympus GIF-140 video endoscope was inserted into the mouth. Esophagus intubated without any difficulty. It was gradually advanced into the stomach and duodenum and carefully examined. The bulb and the second part of the duodenum appeared normal. The scope at this time was withdrawn to the stomach, adequately insufflated with air, and upon careful examination, mucosa of the antrum and mild gastritis and biopsies were done from this area. The, body, cardia and the fundus appeared normal. The scope was then withdrawn into the esophagus. The GE junction was located at 39 cm from the incisors. Small sliding type hiatal hernia noted. The esophagus appeared normal. There were no erosions or ulcerations seen and the patient tolerated the procedure well. IMPRESSION: 1. Small sliding type hiatal hernia. 2. Mild antral gastritis. RECOMMENDATIONS: The findings of this examination were discussed with the patient as well as a family. She was advised to follow with the biopsy results. She will continue with omeprazole 20 mg twice daily and will add Carafate 1 g 4 times daily. He'll be seen in office in 3-4 weeks..
[2021-07-10 11:29] VITALS: BP 145/68; PULSE 59
== END 2021-07-10 12:14 | disposition home or self-care (01) ==
LOC: ORWHC2ENDO 09:12
PROVIDERS: ATTEND Internal Medicine Gastroenterology
DX: K29.70 Gastritis, unspecified, without bleeding (principal); K44.9 Diaphragmatic hernia without obstruction or gangrene; K21.9 Gastro-esophageal reflux disease without esophagitis; G89.29 Other chronic pain; I10 Essential (primary) hypertension; E78.5 Hyperlipidemia, unspecified; I20.9 Angina pectoris, unspecified; F32.9 Major depressive disorder, single episode, unspecified; G47.33 Obstructive sleep apnea (adult) (pediatric); Z79.899 Other long term (current) drug therapy
CPT/HCPCS: 43239; J2001; J2704; 88305

== ENCOUNTER → 2021-08-09 | Outpatient (CLI) | payer MEDICARE ==
--- NOTE | 2021-08-09 12:26 | US ---
EXAMINATION TYPE: US venous doppler duplex LE RT DATE OF EXAM: 08/09/2021 11:54 AM COMPARISON: NONE CLINICAL HISTORY: I80.9 PHLEBITIS AND THROMBOPHLEBITIS. Right leg swelling and pain for the past 3 we eks SIDE PERFORMED: Right TECHNIQUE: The lower extremity deep venous system is examined utilizing real time linear array sonog jennie with graded compression, doppler sonography and color-flow sonography. VESSELS IMAGED: Common Femoral Vein Deep Femoral Vein Greater Saphenous Vein * Femoral Vein Popliteal Vein Small Saphenous Vein * Proximal Calf Veins (* superficial vessels) Right Leg: Negative for DVT Small fluid collection seen medial to right knee. 2.0 x 1.3 x 0.7cm IMPRESSION: 1. Right lower extremity ultrasound negative for deep venous thrombosis. 2. Small fluid collection is medial to the right knee.
== END | disposition home or self-care (01) ==
LOC: RADUSWWP 11:19
PROVIDERS: ATTEND Orthopaedic Surgery
DX: R22.41 Localized swelling, mass and lump, right lower limb (principal)

== ENCOUNTER → 2021-08-23 | Outpatient (CLI) | payer MEDICARE ==
[2021-08-23 23:18] LABS: Basophils # (A) 0.06 X 10*3/uL (0.00-0.10); Basophils % (A) 0.9 %; Eosinophils # (A) 0.17 X 10*3/uL (0.04-0.35); Eosinophils % (A) 2.4 %; HCT 33.6 % (37.2-46.3); HGB 10.3 g/dL (12.0-15.0); MCHC 30.7 g/dL (32.0-37.0); MCV 101.2 fL (80.0-97.0); Mean Platelet Volume 9.5 fL (9.5-12.2); Monocytes # (A) 0.73 X 10*3/uL (0.20-1.00); Monocytes % (A) 10.5 %; Neutrophils # (A) 3.69 X 10*3/uL (1.80-7.70); Neutrophils % (A) 53.1 %; Platelet Count 250 X 10*3/uL (140-440); RBC 3.32 X 10*6/uL (4.10-5.20); RDW 14.8 % (11.5-14.5); WBC 6.96 X 10*3/uL (4.50-10.00)
[2021-08-24 00:35] LABS: ALT 16 U/L (8-44); AST 18 U/L (13-35); African American GFR (CKD) 42.3 (60.0-200.0); Albumin 4.1 g/dL (3.8-4.9); Albumin/Globulin Ratio 1.68 (1.60-3.17); Alkaline Phosphatase 32 U/L (41-126); Bilirubin, Conjugated <0.20 mg/dL (0.20-0.40); Globulin 2.5 g/dL (1.6-3.3); Non-African American GFR(CKD) 36.5 (60.0-200.0); Total Protein 6.6 g/dL (6.2-8.2)
== END | disposition home or self-care (01) ==
LOC: LABWHC1 14:16
PROVIDERS: ATTEND Internal Medicine
DX: Z51.81 Encounter for therapeutic drug level monitoring (principal); M05.79 Rheumatoid arthritis with rheumatoid factor of multiple sites without organ or systems involvement; D84.9 Immunodeficiency, unspecified
CPT/HCPCS: 36415; 80076; 82565; 85025

== ENCOUNTER → 2021-11-16 | Outpatient (CLI) | payer MEDICARE ==
--- NOTE | 2021-11-16 12:28 | MR ---
MRI CERVICAL SPINE: CLINICAL HISTORY: Neck pain radiates down left arm for 2 months TECHNIQUE: Multiplanar, multisequence imaging of the cervical spine is performed without IV contrast. COMPARISON: None. FINDINGS: Sagittal images of the cervical spine show the craniocervical junction to appear within nor mal limits. The cervical and upper thoracic spinal cord is normal in caliber and signal. Alignment i s straightened. There appears to be spinal canal stenosis at T2-T3 level sagittal image 9. The verte bral body height are normal. Mild disc space narrowing C5-C6 level. There is grade 1 anterolisthesis of T2 on T3 with moderate disc space narrowing at this level. The bone marrow signal intensity is wit hin normal limits. Axial images at C2-C3 and C3-C4 level show uncovertebral facet degenerative changes greater on the le ft causing mild left-sided neural foraminal narrowing. Axial images at C4-C5 level show broad-based right paracentral disc protrusion effacing the anterior thecal sac, patent bilateral neural foramina. Axial images at C5-C6 levels with broad-based left paracentral disc protrusion effacing anterior thec al sac and causing moderate left and mild right-sided neural foraminal narrowing. Axial images at C6-C7 level shows broad-based posterior disc protrusion mildly effacing the anterior thecal sac, patent bilateral neural foramina. Axial images at C7-T1 level appear within normal limits. IMPRESSION: Straightening of cervical spine with multilevel degenerative changes greatest at C5-C6 le rosana. Most prominent findings noted only seen on sagittal images at T2-T3 level where there is spondyl olisthesis and disc herniation present.
== END | disposition home or self-care (01) ==
LOC: RADMRIMAIN 11:38
PROVIDERS: ATTEND Family Medicine
DX: M47.22 Other spondylosis with radiculopathy, cervical region (principal); M43.14 Spondylolisthesis, thoracic region; M50.123 Cervical disc disorder at C6-C7 level with radiculopathy
CPT/HCPCS: 72141

== ENCOUNTER → 2021-12-04 | Outpatient (CLI) | payer MEDICARE ==
[2021-12-04 14:13] LABS: Basophils # (A) 0.04 X 10*3/uL (0.00-0.10); Basophils % (A) 0.7 %; Eosinophils # (A) 0.13 X 10*3/uL (0.04-0.35); Eosinophils % (A) 2.2 %; HCT 30.5 % (37.2-46.3); HGB 9.4 g/dL (12.0-15.0); Immature Grans, Automated 0.2 %; Lymphocytes # (A) 1.66 X 10*3/uL (0.90-5.00); Lymphocytes % (A) 27.9 %; MCH 32.2 pg (27.0-32.0); MCHC 30.8 g/dL (32.0-37.0); MCV 104.5 fL (80.0-97.0); Monocytes # (A) 0.37 X 10*3/uL (0.20-1.00); Monocytes % (A) 6.2 %; NRBC Per 100 WBC 0 /100 WBCS (0.0-0.0); Neutrophils # (A) 3.73 X 10*3/uL (1.80-7.70); Neutrophils % (A) 62.8 %; Platelet Count 245 X 10*3/uL (140-440); RBC 2.92 X 10*6/uL (4.10-5.20); RDW 13.6 % (11.5-14.5); WBC 5.94 X 10*3/uL (4.50-10.00)
[2021-12-04 14:25] LABS: ALT 22 U/L (8-44); AST 17 U/L (13-35); African American GFR (CKD) 47.5 (60.0-200.0); Albumin/Globulin Ratio 1.74 (1.60-3.17); Alkaline Phosphatase 30 U/L (41-126); BUN/Creat Ratio 16.38 Ratio (12.00-20.00); Bilirubin, Conjugated <0.20 mg/dL (0.20-0.40); Blood Urea Nitrogen 21.3 mg/dL (9.0-27.0); Calcium 9.6 mg/dL (8.7-10.3); Carbon Dioxide 21.2 mmol/L (20.0-27.5); Chloride 108 mmol/L (96-109); Chol/HDL Ratio 2.71 Ratio; Creatine Kinase 74 U/L (26-186); Globulin 2.3 g/dL (1.6-3.3); Glucose 84 mg/dL (70-110); LDL Cholesterol,Calculated 107.3 mg/dL (0.0-131.0); Potassium 4.3 mmol/L (3.5-5.5); Sodium 145 mmol/L (135-145); Total Protein 6.3 g/dL (6.2-8.2); VLDL Calculation 11.22 mg/dL (5.00-40.00)
[2021-12-04 14:48] LABS: Erythrocyte Sedimentation Rate 27 mm/Hr (0-30)
== END | disposition home or self-care (01) ==
LOC: LABWHC1 10:15
PROVIDERS: ATTEND Internal Medicine
DX: M06.9 Rheumatoid arthritis, unspecified (principal); I10 Essential (primary) hypertension; K58.0 Irritable bowel syndrome with diarrhea; M54.12 Radiculopathy, cervical region; E78.00 Pure hypercholesterolemia, unspecified; D84.9 Immunodeficiency, unspecified; M05.79 Rheumatoid arthritis with rheumatoid factor of multiple sites without organ or systems involvement; Z51.81 Encounter for therapeutic drug level monitoring
CPT/HCPCS: 36415; 80053; 80061; 82248; 82306; 82550; 82607; 84443; 85025; 85652; 86140

== ENCOUNTER → 2021-12-19 | Outpatient (CLI) | payer MEDICARE ==
--- NOTE | 2021-12-20 10:46 | MM ---
Reason for exam: screening (asymptomatic). Last mammogram was performed 1 year and 4 months ago. History: Patient is postmenopausal. Family history of breast cancer in sister at age 54, premenopausal breast cancer in sister at age 42, and breast cancer in daughter at age 36. Benign stereotactic core biopsy of the right breast, December 31, 1999. Cyst aspiration of the left breast, 1999. Took estrogen for 2 years. Took progesterone for 2 years. Physical Findings: A clinical breast exam by your physician is recommended on an annual basis and results should be correlated with mammographic findings. MG Screening Mammo w CAD Bilateral CC and MLO view(s) were taken. Prior study comparison: August 24, 2020, bilateral MG screening mammo w CAD. May 16, 2019, bilateral MG screening mammo w CAD. The breast tissue is heterogeneously dense. This may lower the sensitivity of mammography. Focal asymmetry upper outer right breast zone B. ASSESSMENT: Incomplete: need additional imaging evaluation, BI-RAD 0 RECOMMENDATION: Special view mammogram of the right breast. If lesion persists on supplemental views, image directed ultrasound is recommended. [facility] will attempt to contact patient to return for supplemental views and ultrasound if indicated.
== END | disposition home or self-care (01) ==
LOC: RADMAMWWP 11:50
PROVIDERS: ATTEND Family Medicine
DX: Z12.31 Encounter for screening mammogram for malignant neoplasm of breast (principal); Z78.0 Asymptomatic menopausal state; Z80.3 Family history of malignant neoplasm of breast
CPT/HCPCS: 77067

== ENCOUNTER → 2021-12-25 | Outpatient (CLI) | payer MEDICARE ==
--- NOTE | 2021-12-25 09:52 | MM ---
Reason for exam: additional evaluation requested from abnormal screening. Last mammogram was performed less than 1 month ago. History: Patient is postmenopausal. Family history of breast cancer in sister at age 54, premenopausal breast cancer in sister at age 42, and breast cancer in daughter at age 36. Benign stereotactic core biopsy of the right breast, December 31, 1999. Cyst aspiration of the left breast, 1999. Took estrogen for 2 years. Took progesterone for 2 years. Physical Findings: A clinical breast exam by your physician is recommended on an annual basis and results should be correlated with mammographic findings. MG Work Up Mamm w CAD RT CC, MLO, and LM view(s) were taken of the right breast. Prior study comparison: December 19, 2021, bilateral MG screening mammo w CAD. August 24, 2020, bilateral MG screening mammo w CAD. The breast tissue is heterogeneously dense. This may lower the sensitivity of mammography. Nondescript nodularity upper outer quadrant right breast. These results were verbally communicated with the patient and result sheet given to the patient on 12/25/21. ASSESSMENT: Incomplete: need additional imaging evaluation, BI-RAD 0 RECOMMENDATION: Ultrasound of the right breast.
--- NOTE | 2021-12-25 09:53 | USB ---
Reason for exam: additional evaluation requested from abnormal screening. History: Patient is postmenopausal. Family history of breast cancer in sister at age 54, premenopausal breast cancer in sister at age 42, and breast cancer in daughter at age 36. Benign stereotactic core biopsy of the right breast, December 31, 1999. Cyst aspiration of the left breast, 1999. Took estrogen for 2 years. Took progesterone for 2 years. Physical Findings: A clinical breast exam by your physician is recommended on an annual basis and results should be correlated with mammographic findings. US Breast Workup Limited RT Right limited breast ultrasound including focal area of concern, retroareolar and axilla demonstrates no cystic or solid lesion seen. Scanned 9-12 o'clock. These results were verbally communicated with the patient and result sheet given to the patient on 12/25/21. ASSESSMENT: Probably benign, BI-RAD 3 RECOMMENDATION: Follow-up diagnostic mammogram of the right breast in 6 months.
== END | disposition home or self-care (01) ==
LOC: RADMAMWWP 08:44
PROVIDERS: ATTEND Family Medicine
DX: R92.8 Other abnormal and inconclusive findings on diagnostic imaging of breast (principal); Z78.0 Asymptomatic menopausal state; Z80.3 Family history of malignant neoplasm of breast
CPT/HCPCS: 77065

== ENCOUNTER → 2022-01-01 | Outpatient (CLI) | payer MEDICARE ==
--- NOTE | 2022-01-01 16:53 | BD ---
EXAMINATION TYPE: Axial Bone Density DATE OF EXAM: 01/01/2022 COMPARISON: 2019 CLINICAL HISTORY: 71 years year old Female. ICD-10 CODE: M89.9 BONE DISORDER Height: 5'4 1/2 Weight: 198 FRAX RISK QUESTIONS Secondary Osteoporosis: Rheumatoid Arthritis: Y RISK FACTORS HISTORY OF: Postmenopausal woman: Y MEDICATIONS: Additional Medications: cholesterol, blood pressure, RA Additional History: EXAM MEASUREMENTS: Bone mineral densitometry was performed using the [employer] System. Bone mineral density as measured about the Lumbar spine is: ----- L1-L4(G/cm2): 1.279 T Score Values are as follows: ----- L1: 1.2 ----- L2: 1.9 ----- L3: 1.9 ----- L4: 0.0 ----- L1-L4: 0.8 Bone mineral density has: Decreased -3.9% since study of: 10/14/2019 Bone mineral density about the R hip (g/cm2): 0.849 Bone mineral density about the L hip (g/cm2): 0.816 T Score values are as follows: -----R Neck: -1.4 -----L Neck: -1.6 -----R Total: -1.1 -----L Total: -0.8 Bone mineral density has: Decreased -1.2 % since study of: 10/14/2019 FRAX%s: The graph provided illustrates a chance for a major osteoporotic fx and a chance for the hips probability for fx in 10 years time. IMPRESSION: Osteopenia (T Score between -2.5 and -1). There is slightly increased risk of fracture and the patient may be considered for treatment. Re-Screen 2-5 years. NOTE: T-SCORE=SD OF THE YOUNG ADULT MEAN.
== END | disposition home or self-care (01) ==
LOC: RADBDWWP 08:29
PROVIDERS: ATTEND Family Medicine
DX: M85.89 Other specified disorders of bone density and structure, multiple sites (principal)
CPT/HCPCS: 77080

== ENCOUNTER → 2022-01-01 | Outpatient (CLI) | payer MEDICARE ==
[2022-01-01 10:41] VITALS: BP 124/72; PULSE 59; RESP 18; TEMP 98.1
--- NOTE | 2022-01-01 10:45 | P.CON ---
Consult Note - . Consult date: 01/01/22 Assessment/Plan:: HISTORY OF PRESENT ILLNESS: 71 yr old female as a referral from Dr. Narvaez presents today with neck pain for the last 4 months secondary to disc bulges, neuroforaminal stenoses and spondylolisthesis for evaluation. Patient states her neck pain is 2 out of 10 in intensity, constant, tight in the lower aspect of her cervical spine with radiation of sharp pain to the left upper extremity and left thumb. Pain escalates as high as 10 out of 10 in intensity when lifting and carrying. Pain is relieved with Tylenol OTC, Voltaren gel, ice, heat, 12 sessions of physical therapy that started 11/02, elevating the left upper extremity with pillows and rest. PMH: HTN, Hyperlipidemia, GERD, DVT, RA PSH: Cholycystectomy, Tubal Ligation, Colonoscopy with EGD. SH: Hx of tobacco use. Occassional ETOH use. No illicit drug use. FH: HTN All: See list Meds: See list REVIEW OF ORGAN SYSTEMS: CONSTITUTIONAL: No fevers or chills. No recent weight loss. HEENT: No visual acuity loss, eye pain, difficulties with hearing. No nosebleeds. No difficulty swallowing. RESPIRATORY: Denies any troubles with breathing or dyspnea on exertion. CARDIOVASCULAR: Denies any chest pain, palpitations, or recent heart attacks. GASTROINTESTINAL: Denies fatty food intolerance. Has change in bowel habits and gas bloat. GENITOURINARY: Denies any blood in urine. Has increased urinary frequency. NEUROLOGICAL: + numbness and tingling along the distal extremities. No seizure disorders or headaches. MUSCULOSKELETAL: + back pain SKIN: No skin cancer. No rash. PSYCHIATRIC: Denies current depression or suicidal thoughts. ENDOCRINE: Denies current thyroid disorders. Denies any blood sugar glucose intolerance. HEME/LYMPHATIC: Denies any lumps and bumps around the neck. History of deep venous thrombosis. ALLERGY/IMMUNOLOGY: No immunoglobulin therapy. No immune deficiencies. BREAST: Denies current breast lumps, pain or nipple discharge. Physical Examinations : Constitutional : Cooperative , not in acute distress . HEENT: Neck supple. No Lymphadenopathy. Normal thyroid size . Eyes no ptosis , no icterus, no photophobia . Hearing intact. Normal oropharynx. No Thrush. Respiratory : Chest clear to auscultations bilaterally. No wheezing. No rhonchi. Cardiovascular : Regular rate and rhythm , S1 / S2. No S3 . No S4. Gastrointestinal : Abdomen soft. No tenderness. Bowel sounds x 4. No organomegaly . Genitourinary : Deferred. Neurologic : Cranial nerve II to XII intact. No focal neurological deficits. Psychiatric : alert & oriented x 3. Matching mood & appropriate affect. Judgment & insight intact. Lymphatic No Lymphadenopathy. Musculoskeletal : Cervical Spine Motor strength in the deltoid and biceps: Normal right side. Normal Left side Motor strength biceps and the wrist extensors: Normal right side . Normal left side Motor strength in the triceps muscle: Normal right side. Normal left side Deep tendon reflexes: Normal at the biceps. Normal at Brachioradialis. Normal at triceps Vertebral body tenderness to palpation over C5, C6 Cervical facet loading test: positive bilaterally Spurling test: positive bilaterally Neck distraction test: positive bilaterally Yolie sign: positive bilaterally Lumbar spine Motor strength lower extremities ,thigh and legs 5/5 Right side , 5/5 Left side Deep tendon reflexes : Normal Knee Jerk. Normal Ankle Jerk Vertebral body tenderness over Lumbar facet Loading Test: positive Right / positive Left Range of motion of the lumbar spine Flexion 30 degrees, extension 10 degrees Straight Leg Raise test: Left/ Right positive at degree Camille test: positive right / positive left. Severe tenderness over the Sacroiliac joint on the Right / Left sides Gaenslen test: positive bilaterally Seated flexion test: positive bilaterally. Assessment/ Plan : Recommendation of L TFESI C5-C6. May need a series of injections, up to 3 within a six-month period, to obtain optimal pain relief. Risks, benefits of procedure discussed and patient verbalized understanding. Admits to aspirin use. Denies medical history of diabetes. Protocol for discontinuation / continuation of ASA 81 mg greg-procedure discussed. All questions answered. I have spent greater than 50 minutes on patient care today. Dr Levine was available by phone for the evaluation of this patient. The time was used to review the medical records including relevant urine studies and Prescription history (MAPs), review of the available imaging, evaluation and examination of the patient, coordination of care with the medical staff and if applicable referring physicians, as well as creation of the medical record PQRS Measure Charge Sheet Mode of Arrival: Ambulatory - Pain Location Left Lower Neck Non-Pharmacological Interventions: Heat, Ice, Inactivity, Physical Therapy Pharmacological Interventions: PRN Medication, Topical Medication PQRS Narrative: Smoking Status Former smoker Blood Pressure 124/72 Pain Intensity [Left Lower 2 Neck] Scale Used Numeric (1 - 10) Hx Alcohol Use (MH) No Home Medications: Ambulatory Orders Aspirin [Adult Low Dose Aspirin EC] 81 mg PO HS 10/30/16 Escitalopram Oxalate [Lexapro] 10 mg PO DAILY 10/30/16 Folic Acid 2 mg PO DAILY 10/30/16 Hydroxychloroquine Sulfate [Plaquenil] 200 mg PO BID 10/30/16 Loperamide [Imodium] 2 mg PO DAILY 10/30/16 Losartan/Hydrochlorothiazide [Losartan-Hctz 100-12.5 mg Tab] 1 tab PO QAM 10/30/16 Pravastatin Sodium [Pravachol] 20 mg PO DAILY 10/30/16 metHOTREXate sodium [Methotrexate] 20 mg PO TH 10/30/16 Calcium Carbonate/Vitamin D3 [Calcium 600-Vit D3 12.5 Mcg (500 Iu)] 2 cap PO BID 06/19/21 Ferrous Sulfate [Iron (65 MG Elemental)] 325 mg PO DAILY 06/19/21 Glucosamine/MSM/Chrond/D3/Bosw [Llbyabjmadi-Rycwtq-Sga D3 Cplt] 1 tab PO BID 06/19/21 Multivit with Calcium,Iron,Min [Women's Multivitamin] 1 tab PO DAILY 06/19/21 Acetaminophen Tab [Tylenol] 650 mg PO Q6HR PRN tab 06/20/21 Pantoprazole [Protonix] 40 mg PO BID@0730,1730 tab 06/20/21 Sucralfate [Carafate] 1 gm PO ACHS 30 Days #120 tablet 06/20/21
== END ==
LOC: PNWHC3 10:05
PROVIDERS: ATTEND Specialist
DX: M50.20 Other cervical disc displacement, unspecified cervical region (principal); M48.02 Spinal stenosis, cervical region; M43.12 Spondylolisthesis, cervical region; I10 Essential (primary) hypertension; E78.5 Hyperlipidemia, unspecified; Z86.718 Personal history of other venous thrombosis and embolism; M06.9 Rheumatoid arthritis, unspecified; Z87.891 Personal history of nicotine dependence; Z91.041 Radiographic dye allergy status; Z88.7 Allergy status to serum and vaccine
CPT/HCPCS: 99211

== ENCOUNTER 2022-03-04 10:18 | Day surgery (SDC) | payer MEDICARE ==
[~2022-03-04 10:18] MED LIST changes: -LIDOCAINE 1% (10MG/ML) FOR IV START INTRADERMA PRN
[2022-03-04 11:00] VITALS: TEMP 98.7
[2022-03-04] MEDS ORDERED: MIDAZOLAM 2 MG/2 ML VIAL ONE (11:39)
[2022-03-04] MEDS ORDERED: IOPAMIDOL M200 10 ML VIAL ONE (11:39)
[2022-03-04] MEDS ORDERED: DEXAMETHASONE SOD PHOSPHATE 10 MG/ML 1 ML VIAL ONE (11:39)
[2022-03-04] MEDS ORDERED: fentaNYL (PF) 50 MCG/ML 2 ML AMP ONE (11:39)
--- NOTE | 2022-03-04 11:41 | P.PCN ---
Date of Procedure: 03/04/22 Description of Procedure: PROCEDURE 1. Cervical epidural steroid injection under fluoroscopic guidance, C6/7 2. Cervical epidurogram. PREOPERATIVE DIAGNOSIS: Cervical radiculopathy POSTOPERATIVE DIAGNOSIS: Cervical radiculopathy Imaging: Fluoroscopy was used, images where saved to the medical record ANESTHESIA: Local anesthesia with 1% lidocaine and (IV conscious sedation ) PROCEDURE DESCRIPTION / TECHNIQUE: The patient was seen and identified in the preoperative area. Risks, benefits, and alternatives were discused with the patient and the patient has consented to the procedure. Risks of the procedure include potential for bleeding, infection, nerve damage, and incomplete pain relief were discussed with the patient. All questions were answered for the patient Patient was taken to the OR and time out was completed. The patient was placed in the prone position on the procedure table. A pillow was placed under the patients chest to increase the cervical interlaminar space. The cervical area was prepped and draped in the usual sterile fashion. Vital signs were closely monitored during the procedure. Using anterior-posterior fluoroscopy, the C6/7 interlaminar space was identified and the skin over this site was marked and then infiltrated with 1% lidocaine subcutaneously. Subsequently, a 20-gauge 3-1/2-inch Tuohy epidural needle was inserted and advanced toward the epidural space by means of the [id number]-no-ftdkvywyyu technique and guided by AP and lateral fluoroscopy. The correct needle position in the epidural space was verified with the injection of 1 mL of the water soluble contrast dye [id number]-180 and observing an excellent epidurogram with the epidural spread of the dye, after negative aspiration for blood and CSF and in the absence of paresthesias. Again after negative aspiration, a mixture containing 10 mg Dexamethasone and 2 ml of preservative- free normal saline injected and a washout of epidurogram was seen. Needle was withdrawn intact, skin was cleansed, and bandages were applied. Complications: none. Disposition: patient was placed in supine position and transferred to the recovery room area in stable condition and there was no evidence of upper or lower extremity motor or sensory deficit after the procedure patient was discharged from recovery room after discharge criteria met and home discharge instructions was given by the staff and patient will follow with the pain as directed.
[2022-03-04] MEDS ORDERED: IV FLUID CONTINUATION 1,000 ML IV ONE (11:56)
[2022-03-04 12:00] VITALS: RESP 18
[2022-03-04 12:14] VITALS: BP 122/67; PULSE 56
--- NOTE | 2022-03-04 13:07 | FL ---
Fluoroscopy HISTORY: Pain 5 seconds fluoroscopy time supplied to the referring clinician. 2 intraoperative C-arm images docume nt the procedure. See dictated report from anesthesia.
== END 2022-03-04 12:32 | disposition home or self-care (01) ==
LOC: ORPAIN 10:18
PROVIDERS: ATTEND Hospitalist
DX: M54.12 Radiculopathy, cervical region (principal)
CPT/HCPCS: 62321; J2250; J1100; J3010; Q9966; 99152

== ENCOUNTER → 2022-03-31 | Outpatient (CLI) | payer MEDICARE ==
[2022-03-31 09:36] VITALS: BP 128/61; PULSE 63; RESP 18
--- NOTE | 2022-03-31 09:38 | P.PAINPG ---
PQRS Measure Charge Sheet Comment: A 71 yr old female with a history of severe and chronic neck pain secondary to degenerative disc diseases and spondylosis with facet arthropathy presents today for evaluation status post L TF RAYNA C5-C6 #1. She states she expressed 95% pain relief for 3 weeks status post procedure but states she also expe rienced intermittent 10 out of 10 shooting pain from the left side of her neck to her left thumb which resolved within minutes. Pain level is currently at 2 out of 10 intensity, dull, achy in the left lower aspect of the cervical spine without radiation of pain. Pain is provoked by rotation and lateral flexion. Pain is alleviated with medications, injections, alternating heat and ice, physical therapy which ended December 2021, daily home exercise regimen, repositioning and rest. Interventional pain procedures completed include L TF RAYNA C5-C6 1 Patient is currently on Tylenol OTC Patient denies any side effects of the medication(s), denies excessive drowsiness or sleepiness, denies suicidal ideation and reports that the current pain medication is helping to control the pain and improve activities of daily living. Patient denies any motor or sensory deficits. Patient denies any fever or night sweats, denies any change in the bowel movements or urination. Physical Examination: -Constitutional: Cooperative. Not in acute distress . -HEENT: Neck is supple. No lymphadenopathy. No thyromegaly. Normal thyroid size. Eyes: No ptosis , no icterus, no photophobia. ENT: No auditory deficits. Normal oropharynx. No Thrush. - Respiratory: Chest clear to auscultations bilaterally. No wheezing. No rhonchi. - Cardiovascular: Regular rate and rhythm. S1 / S2 , no S3 , no S4. - Gastrointestinal: Abdomen soft no tenderness. Bowel sounds positive in all four quadrants. No organomegaly. - Genitourinary: Deferred. - Neurologic: Cranial nerve II to XII intact. No focal neurological deficits. - Psychatric: Alert & oriented x 3. Matching mood & appropriate affect. Judgment and insight intact. - Lymphatic: No Lymphadenopathy. - Musculoskeletal: Cervical spine: Muscle bulk/ tone/ strength in the bilateral upper extremities normal Vertebral body tenderness to palpation over C5, C6 Facet loading test positive Thoracic spine Muscle bulk / tone/ strength in the bilateral paraspinal muscles normal Vertebral body tender to palpation over Facet loading test positive Lumbar spine: Motor bulk/ tone/ strength lower extremities , thigh and legs : 5/5 Deep tendon reflexes : Normal Knee Jerk. Normal Ankle Jerk . Vertebral body tenderness to palpation over Lumbar Facet Loading Test positive Straight Leg Raise: positive at 30 degrees right side/ left side Gaenslen's Test positive Sacral spine : Severe tenderness over the Sacroiliac joint: right side / left side Range of motion: Flexion of the lumbar spine <60 degrees Range of motion: Extension of the lumbar spine <20 degrees Gaenslen's Test positive Kedar's Test positive Camille test: positive right side / left side Thigh Thrust Test Sacral Thrust Test Assessment and plan: Chronic neck pain secondary to degenerative disc disease , spondylosis with facet arthropathy without myelopathy Recommendation of L TFESI C5-C6 x 2. May need a series of injections, up to 3 within a six-month timeframe, for optimal pain relief. Risks, benefits of procedure discussed and pt verbalized understanding. Denies a medical history of diabetes. Admits to ASA 81 mg use. Protocol for discontinuation/continuation of medications greg procedure discussed. Pt is also interested in acquiring a cervical traction device for home use. Manual cervical traction was applied for 2 minutes in the exam room and patient admitted to substantial pain relief All patient questions answered MAPS reviewed and it was appropriate. I have spent 31 minutes on patient care today. Dr Levine was available by phone for the evaluation of this patient. The time was used to review the medical records including relevant urine studies and Prescription history (MAPs), review of the available imaging, evaluation and examination of the patient, coordination of care with the medical staff and if applicable referring physicians, as well as creation of the medical record PQRS Narrative: Smoking Status Former smoker Hx Alcohol Use (MH) No Home Medications: Ambulatory Orders Aspirin [Adult Low Dose Aspirin EC] 81 mg PO HS 10/30/16 Escitalopram Oxalate [Lexapro] 10 mg PO DAILY 10/30/16 Folic Acid 2 mg PO DAILY 10/30/16 Hydroxychloroquine Sulfate [Plaquenil] 200 mg PO BID 10/30/16 Loperamide [Imodium] 2 mg PO DAILY 10/30/16 Losartan/Hydrochlorothiazide [Losartan-Hctz 100-12.5 mg Tab] 1 tab PO QAM 10/30/16 Pravastatin Sodium [Pravachol] 20 mg PO DAILY 10/30/16 metHOTREXate sodium [Methotrexate] 20 mg PO TH 10/30/16 Calcium Carbonate/Vitamin D3 [Calcium 600-Vit D3 12.5 Mcg (500 Iu)] 2 cap PO BID 06/19/21 Ferrous Sulfate [Iron (65 MG Elemental)] 325 mg PO DAILY 06/19/21 Glucosamine/MSM/Chrond/D3/Bosw [Tfczesqdtig-Agoqkr-Hqg D3 Cplt] 1 tab PO BID 06/19/21 Multivit with Calcium,Iron,Min [Women's Multivitamin] 1 tab PO DAILY 06/19/21 Acetaminophen Tab [Tylenol] 650 mg PO Q6HR PRN tab 06/20/21 Pantoprazole [Protonix] 40 mg PO BID@0730,1730 tab 06/20/21 Sucralfate [Carafate] 1 gm PO ACHS 30 Days #120 tablet 06/20/21 Controlled Substance Measures - Controlled Substance Measures Is patient prescribed a controlled substance at discharge?: No
== END ==
LOC: PNWHC3 09:15
PROVIDERS: ATTEND Specialist
DX: G89.29 Other chronic pain (principal); M50.30 Other cervical disc degeneration, unspecified cervical region; M47.812 Spondylosis without myelopathy or radiculopathy, cervical region; Z87.891 Personal history of nicotine dependence; Z91.041 Radiographic dye allergy status; Z88.7 Allergy status to serum and vaccine
CPT/HCPCS: 99211

== ENCOUNTER → 2022-04-22 | Outpatient (CLI) | payer MEDICARE ==
--- NOTE | 2022-04-22 08:04 | CT ---
EXAMINATION TYPE: CT abdomen pelvis wo con CT DLP: 881.3 mGycm, Automated exposure control for dose reduction was used. DATE OF EXAM: 04/22/2022 7:57 AM COMPARISON: CT abdomen pelvis most recent from 06/16/2019 CLINICAL INDICATION:Female, 72 years old with history of K57.32 diverticulitis OF LG INT W/O PERFORAT ION OR ABSCESS; abd pain, bloating, diverticulitis TECHNIQUE: Standard CT of the abdomen and pelvis following the administration of oral contrast. Cor onal and sagittal reformats were performed. FINDINGS: LOWER CHEST: Unremarkable ABDOMEN LIVER: Unremarkable GALLBLADDER AND BILE DUCTS: The gallbladder is surgically absent. PANCREAS: Unremarkable. SPLEEN: Unremarkable. ADRENAL GLANDS: Unremarkable. KIDNEYS AND URETERS: No evidence of hydronephrosis or renal calculus. Left renal cyst. PELVIS BLADDER: Unremarkable REPRODUCTIVE: Unremarkable. ABDOMEN & PELVIS STOMACH AND BOWEL: Multiple colonic diverticula are present, there are inflammatory changes around a diverticulum in the left lower quadrant without evidence of organizing fluid collection. No evidence of bowel obstruction. PERITONEUM: No evidence of pneumoperitoneum or free fluid. VASCULATURE: Moderate atherosclerotic calcifications are present throughout the abdominal aorta and i ts branches. No evidence of aortic aneurysm. MUSCULOSKELETAL: No acute osseous abnormalities. Moderate disc degeneration changes are present throu ghout the thoracolumbar spine. LYMPH NODES: No gross evidence for lymphadenopathy. SOFT TISSUE/ABDOMINAL WALL: Unremarkable IMPRESSION: Acute uncomplicated sigmoid colon diverticulitis. No evidence of organizing fluid collection to sugge st abscess.
== END | disposition home or self-care (01) ==
LOC: RADCTMAIN 07:25
PROVIDERS: ATTEND Internal Medicine Geriatric Medicine
DX: K57.32 Diverticulitis of large intestine without perforation or abscess without bleeding (principal)
CPT/HCPCS: 74176

== ENCOUNTER 2022-05-20 06:06 | Day surgery (SDC) | payer MEDICARE ==
[2022-05-19 08:41] VITALS: BMI 32.4
[2022-05-20] MEDS ORDERED: LIDOCAINE 1% (10MG/ML) FOR IV START INTRADERMA ONE (06:40)
[2022-05-20] MEDS ORDERED: LACTATED RINGERS 1,000 ML IV SCH (06:45)
[2022-05-20 06:52] VITALS: TEMP 98
[2022-05-20] MEDS ORDERED: MIDAZOLAM 2 MG/2 ML VIAL ONE (06:52)
[2022-05-20] MEDS ORDERED: IOPAMIDOL M200 10 ML VIAL ONE (06:52)
[2022-05-20] MEDS ORDERED: DEXAMETHASONE SOD PHOSPHATE 10 MG/ML 1 ML VIAL ONE (06:52)
[2022-05-20] MEDS ORDERED: fentaNYL (PF) 50 MCG/ML 2 ML AMP ONE (06:52)
--- NOTE | 2022-05-20 07:07 | P.PCN ---
Date of Procedure: 05/20/22 Procedure(s) Performed: Cervical epidural steroid injection C5 6 left side Description of Procedure: PROCEDURE 1. Cervical epidural steroid injection under fluoroscopic guidance, left C5-C6 2. Cervical epidurogram. PREOPERATIVE DIAGNOSIS: Cervical radiculopathy POSTOPERATIVE DIAGNOSIS: Cervical radiculopathy Imaging: Fluoroscopy was used, images where saved to the medical record ANESTHESIA: Medication Administered by: Nurse Sedation Type: Moderate sedation Sedation Supervision start time: [id number] Sedation Supervision end time: 706 PROCEDURE DESCRIPTION / TECHNIQUE: The patient was seen and identified in the preoperative area. Risks, benefits, and alternatives were discused with the patient and the patient has consented to the procedure. Risks of the procedure include potential for bleeding, infection, nerve damage, and incomplete pain relief were discussed with the patient. All questions were answered for the patient Patient was taken to the OR and time out was completed. The patient was placed in the prone position on the procedure table. A pillow was placed under the patients chest to increase the cervical interlaminar space. The cervical area was prepped and draped in the usual sterile fashion. Vital signs were closely monitored during the procedure. Using anterior-posterior fluoroscopy, the C5/6 interlaminar space was identified and the skin over this site was marked and then infiltrated with 1% lidocaine subcutaneously. Subsequently, a 20-gauge 3-1/2-inch Tuohy epidural needle was inserted and advanced toward the epidural space by means of the [id number] technique and guided by AP and lateral fluoroscopy. The correct needle position in the epidural space was verified with the injection of 0.25 mL of the water soluble contrast dye [id number]-180 and observing an excellent epidurogram with the epidural spread of the dye, after negative aspiration for blood and CSF and in the absence of paresthesias. Again after negative aspiration, a mixture containing 10 mg Dexamethasone and 2 ml of preservative- free normal saline injected and a washout of epidurogram was seen. Needle was withdrawn intact, skin was cleansed, and bandages were applied. Complications: none. Disposition: patient was placed in supine position and transferred to the recovery room area in stable condition and there was no evidence of upper or lower extremity motor or sensory deficit after the procedure patient was discharged from recovery room after discharge criteria met and home discharge instructions was given by the staff and patient will follow with the pain as directed.
[2022-05-20] MEDS ORDERED: IV FLUID CONTINUATION 700 ML IV ONE (07:16)
[2022-05-20 07:25] VITALS: BP 126/72; PULSE 55; RESP 17
--- NOTE | 2022-05-20 08:26 | FL ---
EXAMINATION TYPE: FL guided pain mgmt statistic DATE OF EXAM: 05/20/2022 HISTORY: Fluoroscopy time 5 seconds of fluoroscopy provided. IMPRESSION: 1. Fluoroscopy time.
== END 2022-05-20 07:41 | disposition home or self-care (01) ==
LOC: ORPAIN 06:06
PROVIDERS: ATTEND Hospitalist
DX: M54.12 Radiculopathy, cervical region (principal); Z88.7 Allergy status to serum and vaccine; Z91.041 Radiographic dye allergy status; Z79.82 Long term (current) use of aspirin; Z79.899 Other long term (current) drug therapy; Z87.891 Personal history of nicotine dependence; Z80.3 Family history of malignant neoplasm of breast; Z80.6 Family history of leukemia; Z82.49 Family history of ischemic heart disease and other diseases of the circulatory system; Z84.1 Family history of disorders of kidney and ureter
CPT/HCPCS: 62321; J2250; J1100; J3010; Q9966; 64479; 99152

== ENCOUNTER → 2022-07-21 | Outpatient (CLI) | payer MEDICARE ==
--- NOTE | 2022-07-21 07:31 | MM ---
Reason for Exam: Follow-up at short interval from prior study. Last screening mammogram was performed 7 month(s) ago. Patient History: Menarche at age 12. First Full-Term at age 24. Postmenopausal. Estrogen for 2 years until age 54. Progesterone for 2 years until age 54. 1999, Cyst Aspiration on the Left side. 12/31/1999, Benign Stereotactic Core Biopsy on the right side. Sister had breast cancer, age 42. Sister had breast cancer, age 54. Daughter had breast cancer, age 36. Risk Values: Kajal 5 year model risk: 7.2%. NCI Lifetime model risk: 16.7%. Prior Study Comparison: 08/24/2020 Bilateral Screening Mammogram, [facility]. 12/19/2021 Bilateral Screening Mammogram, [facility]. 12/25/2021 Right Diagnostic Mammogram, [facility]. Tissue Density: Right: The breast tissue is heterogeneously dense. This may lower the sensitivity of mammography. Findings: Analyzed By CAD. Benign calcification within the right breast. Previous mammotome biopsy clip in the right breast. Unchanged nodularity within the upper outer right breast. No new suspicious masses. Overall Assessment: Incomplete: need additional imaging evaluation, BI-RAD 0 Management: Diagnostic Breast Ultrasound of the right breast. A clinical breast exam by your physician is recommended on an annual basis and results should be correlated with mammographic findings. This exam should not preclude additional follow-up of suspicious palpable abnormalities. Results were given to the patient verbally at the time of exam. Electronically signed and approved by: Monty Whitfield D.O.
--- NOTE | 2022-07-21 07:54 | USB ---
Reason for Exam: Follow-up at short interval from prior study. Patient History: Menarche at age 12. First Full-Term at age 24. Postmenopausal. Estrogen for 2 years until age 54. Progesterone for 2 years until age 54. 1999, Cyst Aspiration on the Left side. 12/31/1999, Benign Stereotactic Core Biopsy on the right side. Sister had breast cancer, age 42. Sister had breast cancer, age 54. Daughter had breast cancer, age 36. Risk Values: Kajal 5 year model risk: 7.2%. NCI Lifetime model risk: 16.7%. Technique: Method: Targeted. Prior Study Comparison: 08/24/2020 Bilateral Screening Mammogram, [facility]. 12/19/2021 Bilateral Screening Mammogram, [facility]. 12/25/2021 Right Diagnostic Mammogram, [facility]. Findings: The upper outer quadrant of the right breast and the axilla of the right breast were scanned. Ultrasound of the right breast from 9:00 to 12:00 with evaluation of the axilla was obtained. No solid or cystic mass identified. Overall Assessment: Probably benign, BI-RAD 3 Management: Diagnostic Mammogram of both breasts in 6 months. A clinical breast exam by your physician is recommended on an annual basis and results should be correlated with mammographic findings. Results were given to the patient verbally at the time of exam. Electronically signed and approved by: Monty Whitfield D.O.
== END | disposition home or self-care (01) ==
LOC: RADMAMWWP 06:43
PROVIDERS: ATTEND Family Medicine
DX: R92.8 Other abnormal and inconclusive findings on diagnostic imaging of breast (principal); Z78.0 Asymptomatic menopausal state; Z80.3 Family history of malignant neoplasm of breast
CPT/HCPCS: 77065

== ENCOUNTER 2022-08-05 14:15 | Emergency (ER) | payer MEDICARE ==
[2022-08-05] MEDS ORDERED: SODIUM CHLORIDE 0.9% 1,000 ML IV STA (16:19)
[2022-08-05] MEDS ORDERED: ONDANSETRON 4 MG/2 ML VIAL IVP STA (16:19)
--- NOTE | 2022-08-05 16:27 | ED ---
General Adult HPI - General Chief complaint: Nausea/Vomiting/Diarrhea Stated complaint: Vomiting Time Seen by Provider: 08/05/22 15:03 Source: patient Mode of arrival: wheelchair Limitations: no limitations - History of Present Illness Initial comments: Dictation was produced using [employer] dictation software. please excuse any grammatical, word or spelling errors. Chief Complaint: 72-year-old female presents emergency department for COVID-19 History of Present Illness: Patient is a 72-year-old female multiple comorbidities. Patient's symptomatic COVID-19 for 6 days. Patient is vaccinated and has had 3 boosters. Including myalgias, arthralgias, nausea, vomiting and diarrhea. Patient denies any abdominal pain. She has been having constitutional symptoms with feeling warm and chills. She states that she does not a little subdued. She feels really sick. She does complain of dry cough and shortness breath. The ROS documented in this emergency department record has been reviewed and confirmed by me. Those systems with pertinent positive or negative responses have been documented in the HPI. All other systems are other negative and/or noncontributory. PHYSICAL EXAM: General Impression: Alert and oriented x3, not in acute distress HEENT: Normocephalic atraumatic, extra-ocular movements intact, pupils equal and reactive to light bilaterally, mucous membranes moist. Cardiovascular: Heart regular rate and rhythm Chest: Able to complete full sentences, no retractions, no tachypnea Abdomen: abdomen soft, non-tender, non-distended, no organomegaly Musculoskeletal: Pulses present and equal in all extremities, no peripheral edema Motor: no focal deficits noted Neurological: CN II-XII grossly intact, no focal motor or sensory deficits noted Skin: Intact with no visualized rashes Psych: Normal affect and mood ED course: 72-year-old well-appearing female presents emergency department for COVID-19 symptoms. Patient is 59 asymptomatic. She is outside the window for PACs noted. Furthermore she is on statin medications. Vital signs upon arrival are within acceptable limits. Laboratory evaluation obtained. Leukocytosis of 21.1. Metabolic panel shows slight elevation of renal markers. Urinalysis positive for 13 white blood cells. Concern for urinary tract infection. Coronavirus positive. Chest x-ray is nonacute. Patient given IV fluids, Solu-Medrol and antiemetics. She is also given 1 g of ceftriaxone to cover for urinary tract infection. Patient observed in emergency department for approximately 6 hours. Reevaluate bedside is o'clock p.m. on a medical condition. Patient on Anaprox and showing signs of respiratory distress. Patient is agreeable to discharge. She is advised to follow closely with primary care doctor. - Related Data Home Medications Medication Instructions Recorded Confirmed Aspirin [Adult Low Dose Aspirin EC] 81 mg PO HS 10/30/16 08/05/22 Escitalopram Oxalate [Lexapro] 10 mg PO DAILY 10/30/16 08/05/22 Folic Acid 2 mg PO DAILY 10/30/16 08/05/22 Hydroxychloroquine Sulfate 200 mg PO BID 10/30/16 08/05/22 [Plaquenil] Pravastatin Sodium [Pravachol] 20 mg PO DAILY 10/30/16 08/05/22 metHOTREXate sodium [Methotrexate] 20 mg PO TH 10/30/16 08/05/22 Calcium Carbonate/Vitamin D3 2 cap PO BID 06/19/21 08/05/22 [Calcium 600-Vit D3 12.5 Mcg (500 Iu)] Ferrous Sulfate [Iron (65 MG 325 mg PO DAILY 06/19/21 08/05/22 Elemental)] Glucosamine/MSM/Chrond/D3/Bosw 1 tab PO BID 06/19/21 08/05/22 [Hyxyqbefckx-Mtsazs-Fnb D3 Cplt] Multivit with Calcium,Iron,Min 1 tab PO DAILY 06/19/21 08/05/22 [Women's Multivitamin] Albuterol Inhaler [Ventolin Hfa 2 puff INHALATION RT-Q6H PRN 08/05/22 08/05/22 Inhaler] Benzonatate [Tessalon Perle] 200 mg PO TID PRN 08/05/22 08/05/22 Furosemide [Lasix] 20 mg PO DAILY PRN 08/05/22 08/05/22 Gabapentin [Neurontin] 300 mg PO HS PRN 08/05/22 08/05/22 Losartan Potassium [Cozaar] 100 mg PO DAILY 08/05/22 08/05/22 Pantoprazole [Protonix] 40 mg PO BID 08/05/22 08/05/22 methocarbamoL [Methocarbamol] 500 mg PO TID PRN 08/05/22 08/05/22 Previous Rx's Medication Instructions Recorded Acetaminophen Tab [Tylenol] 650 mg PO Q6HR PRN tab 06/20/21 Sucralfate [Carafate] 1 gm PO ACHS 30 Days #120 tablet 06/20/21 Cephalexin [Keflex] 250 mg PO Q6HR 5 Days #20 cap 08/05/22 Ondansetron Odt [Zofran Odt] 4 mg PO Q8HR PRN #12 tab 08/05/22 methylPREDNISolone Dose Pack 4 mg PO DIRECTED #21 tab 08/05/22 [Medrol Dose Pack] Allergies Allergy/AdvReac Type Severity Reaction Status Date / Time Iodinated Contrast Media Allergy Itching/Roddy Verified 08/05/22 19:32 [Iodinated Contrast Media - h/Hives Oral and] Tetanus Vaccines and Toxoid Allergy Swelling/Ra Verified 08/05/22 19:32 sh/Hives Review of Systems ROS Statement: Those systems with pertinent positive or pertinent negative responses have been documented in the HPI. ROS Other: All systems not noted in ROS Statement are negative. Past Medical History Past Medical History: Chest Pain / Angina, Deep Vein Thrombosis (DVT), GERD/Reflux, Hyperlipidemia, Hypertension, Rheumatoid Arthritis (RA), Sleep Apnea/CPAP/BIPAP Additional Past Medical History / Comment(s): Hx right arm DVT 40 yrs ago, IBS, USES CPAP. History of Any Multi-Drug Resistant Organisms: None Reported Date of last positivie culture/infection: None MDRO Source:: None Past Surgical History: Cholecystectomy, Tubal Ligation Additional Past Surgical History / Comment(s): COLONOSCOPY, EGD, PAIN CLINIC PROCEDURE. Past Anesthesia/Blood Transfusion Reactions: No Reported Reaction Additional Past Anesthesia/Blood Transfusion Reaction / Comment(s): Daughter slow to wake up. Past Psychological History: Anxiety Smoking Status: Former smoker Past Alcohol Use History: Occasional Past Drug Use History: None Reported - Past Family History Father Family Medical History: Cancer Mother Family Medical History: Hypertension Brother(s) Additional Family Medical History / Comment(s): Kidney transplant. Sister(s) Family Medical History: Cancer Additional Family Medical History / Comment(s): Sisters X3 breast cancer. Daughter(s) Family Medical History: Cancer General Exam Limitations: no limitations Course Vital Signs 08/05/22 08/05/22 14:26 19:22 Temperature 99.1 F 99.2 F Pulse Rate 89 78 Respiratory 20 16 Rate Blood Pressure 146/83 130/62 O2 Sat by Pulse 97 99 Oximetry Medical Decision Making - Lab Data Result diagrams: 08/05/22 16:14 08/05/22 16:14 Lab Results 08/05/22 08/05/22 08/05/22 Range/Units 16:14 16:14 16:14 WBC 21.1 H (3.8-10.6) k/uL RBC 3.53 L (3.80-5.40) m/uL Hgb 11.3 L (11.4-16.0) gm/dL Hct 33.2 L (34.0-46.0) % MCV 94.0 (80.0-100.0) fL MCH 32.1 (25.0-35.0) pg MCHC 34.1 (31.0-37.0) g/dL RDW 13.6 (11.5-15.5) % Plt Count 279 (150-450) k/uL MPV 7.4 Neutrophils % 92 % Lymphocytes % 5 % Monocytes % 2 % Eosinophils % 1 % Basophils % 0 % Neutrophils # 19.5 H (1.3-7.7) k/uL Lymphocytes # 1.0 (1.0-4.8) k/uL Monocytes # 0.4 (0-1.0) k/uL Eosinophils # 0.2 (0-0.7) k/uL Basophils # 0.0 (0-0.2) k/uL Sodium 135 L (137-145) mmol/L Potassium 3.4 L (3.5-5.1) mmol/L Chloride 97 L (98-107) mmol/L Carbon Dioxide 24 (22-30) mmol/L Anion Gap 14 mmol/L BUN 24 H (7-17) mg/dL Creatinine 1.63 H (0.52-1.04) mg/dL Est GFR (CKD-EPI)AfAm 36 (>60 ml/min/1.73 sqM) Est GFR (CKD-EPI)NonAf 31 (>60 ml/min/1.73 sqM) Glucose 134 H (74-99) mg/dL Calcium 9.0 (8.4-10.2) mg/dL Magnesium 1.8 (1.6-2.3) mg/dL Urine Color Urine Appearance (Clear) Urine pH (5.0-8.0) Ur Specific [place] (1.001-1.035) Urine Protein (Negative) Urine Glucose (UA) (Negative) Urine Ketones (Negative) Urine Blood (Negative) Urine Nitrite (Negative) Urine Bilirubin (Negative) Urine Urobilinogen (<2.0) mg/dL Ur Leukocyte Esterase (Negative) Urine RBC (0-5) /hpf Urine WBC (0-5) /hpf Ur Squamous Epith Cells (0-4) /hpf Hyaline Casts (0-2) /lpf Granular Casts (0) /lpf Urine Mucus (None) /hpf Influenza Type A (PCR) Not Detected (Not Detectd) Influenza Type B (PCR) Not Detected (Not Detectd) RSV (PCR) Not Detected (Not Detectd) SARS-CoV-2 (PCR) Detected A (Not Detectd) 08/05/22 Range/Units 19:39 WBC (3.8-10.6) k/uL RBC (3.80-5.40) m/uL Hgb (11.4-16.0) gm/dL Hct (34.0-46.0) % MCV (80.0-100.0) fL MCH (25.0-35.0) pg MCHC (31.0-37.0) g/dL RDW (11.5-15.5) % Plt Count (150-450) k/uL MPV Neutrophils % % Lymphocytes % % Monocytes % % Eosinophils % % Basophils % % Neutrophils # (1.3-7.7) k/uL Lymphocytes # (1.0-4.8) k/uL Monocytes # (0-1.0) k/uL Eosinophils # (0-0.7) k/uL Basophils # (0-0.2) k/uL Sodium (137-145) mmol/L Potassium (3.5-5.1) mmol/L Chloride (98-107) mmol/L Carbon Dioxide (22-30) mmol/L Anion Gap mmol/L BUN (7-17) mg/dL Creatinine (0.52-1.04) mg/dL Est GFR (CKD-EPI)AfAm (>60 ml/min/1.73 sqM) Est GFR (CKD-EPI)NonAf (>60 ml/min/1.73 sqM) Glucose (74-99) mg/dL Calcium (8.4-10.2) mg/dL Magnesium (1.6-2.3) mg/dL Urine Color Yellow Urine Appearance Cloudy H (Clear) Urine pH 5.5 (5.0-8.0) Ur Specific [place] 1.019 (1.001-1.035) Urine Protein 2+ H (Negative) Urine Glucose (UA) Negative (Negative) Urine Ketones Negative (Negative) Urine Blood Moderate H (Negative) Urine Nitrite Negative (Negative) Urine Bilirubin Negative (Negative) Urine Urobilinogen <2.0 (<2.0) mg/dL Ur Leukocyte Esterase Small H (Negative) Urine RBC 8 H (0-5) /hpf Urine WBC 13 H (0-5) /hpf Ur Squamous Epith Cells 2 (0-4) /hpf Hyaline Casts 8 H (0-2) /lpf Granular Casts 1 (0) /lpf Urine Mucus Rare H (None) /hpf Influenza Type A (PCR) (Not Detectd) Influenza Type B (PCR) (Not Detectd) RSV (PCR) (Not Detectd) SARS-CoV-2 (PCR) (Not Detectd) Disposition Clinical Impression: Coronavirus infection Disposition: HOME SELF-CARE Condition: Fair Instructions (If sedation given, give patient instructions): Coronavirus Disease 2019 (COVID-19) Prescriptions: Cephalexin [Keflex] 250 mg PO Q6HR 5 Days #20 cap methylPREDNISolone Dose Pack [Medrol Dose Pack] 4 mg PO DIRECTED #21 tab Ondansetron Odt [Zofran Odt] 4 mg PO Q8HR PRN #12 tab PRN Reason: Nausea Is patient prescribed a controlled substance at d/c from ED?: No Referrals: Cierra Tobin MD [Primary Care Provider] - 1-2 days Time of Disposition: 20:12
[2022-08-05 16:29] LABS: Basophils % (A) 0 %; Eosinophils # (A) 0.2 k/uL (0-0.7); Eosinophils % (A) 1 %; HCT 33.2 % (34.0-46.0); HGB 11.3 gm/dL (11.4-16.0); Lymphocytes % (A) 5 %; MCH 32.1 pg (25.0-35.0); MCHC 34.1 g/dL (31.0-37.0); Mean Platelet Volume 7.4; Monocytes # (A) 0.4 k/uL (0-1.0); Monocytes % (A) 2 %; Neutrophils # (A) 19.5 k/uL (1.3-7.7); Neutrophils % (A) 92 %; Platelet Count 279 k/uL (150-450); RBC 3.53 m/uL (3.80-5.40); RDW 13.6 % (11.5-15.5); WBC 21.1 k/uL (3.8-10.6)
[2022-08-05 16:37] LABS: Magnesium 1.8 mg/dL (1.6-2.3); Potassium 3.4 mmol/L (3.5-5.1)
--- NOTE | 2022-08-05 16:52 | XR ---
EXAMINATION TYPE: XR chest 2V DATE OF EXAM: 08/05/2022 COMPARISON: 06/19/2021 HISTORY: Weakness TECHNIQUE: FINDINGS: Heart is normal. Lungs are clear of infiltrate. No heart failure. There are no hilar masses . There is some spurring in the thoracic spine. IMPRESSION: No active cardiopulmonary disease. Normal heart. No change
[2022-08-05 19:23] VITALS: RESP 16
[2022-08-05 19:58] LABS: Appearance,Urine Cloudy (Clear); Bilirubin,Urine Negative (Negative); Blood,Urine Moderate (Negative); Color,Urine Yellow; Glucose,Urine (UA) Negative (Negative); Granular Casts,Urine 1 /lpf (0); Hyaline Casts,Urine 8 /lpf (0-2); Ketones,Urine Negative (Negative); Leukocyte Esterase,Urine Small (Negative); Mucus,Urine Rare /hpf; Nitrite,Urine Negative (Negative); PH, Urine 5.5 (5.0-8.0); Protein,Urine 2+ (Negative); RBC,Urine 8 /hpf (0-5); Specific Gravity,Urine 1.019 (1.001-1.035); Squamous Epithelial Cell,Urine 2 /hpf (0-4); Urobilinogen,Urine <2.0 mg/dL (<2.0); WBC,Urine 13 /hpf (0-5)
[2022-08-05] MEDS ORDERED: cefTRIAXone IN SWFI 1,000 MG/10 ML SYRINGE IVP STA (20:01)
[2022-08-05] MEDS ORDERED: methylPREDNISolone SOD SUCCI 125 MG/2 ML VIAL IV STA (20:09)
[2022-08-05 21:47] VITALS: BP 131/81; PULSE 70; TEMP 98.7
== END 2022-08-05 21:47 | disposition home or self-care (01) ==
LOC: EC 14:15
DX: U07.1 COVID-19 (principal); Z86.718 Personal history of other venous thrombosis and embolism; K21.9 Gastro-esophageal reflux disease without esophagitis; E78.5 Hyperlipidemia, unspecified; I10 Essential (primary) hypertension; M06.9 Rheumatoid arthritis, unspecified; F41.9 Anxiety disorder, unspecified; Z87.891 Personal history of nicotine dependence; Z88.7 Allergy status to serum and vaccine; Z91.041 Radiographic dye allergy status; Z79.82 Long term (current) use of aspirin; Z79.51 Long term (current) use of inhaled steroids; Z79.899 Other long term (current) drug therapy
CPT/HCPCS: 36415; 80048; 83735; 85025; 81001; 87086; 87636; 71046; 99284; 96374; 96375 ×2; 96361 ×2; J2930; J2405; J0696

== ENCOUNTER → 2022-11-07 | Outpatient (CLI) | payer MEDICARE ==
[2022-11-07 18:53] LABS: Basophils # (A) 0.05 X 10*3/uL (0.00-0.10); Eosinophils # (A) 0.15 X 10*3/uL (0.04-0.35); HCT 34.3 % (37.2-46.3); HGB 10.2 g/dL (12.0-15.0); Immature Grans, Automated 0.2 %; Lymphocytes # (A) 1.53 X 10*3/uL (0.90-5.00); Lymphocytes % (A) 30.8 %; MCH 30.7 pg (27.0-32.0); MCHC 29.7 g/dL (32.0-37.0); MCV 103.3 fL (80.0-97.0); Mean Platelet Volume 9.3 fL (9.5-12.2); Monocytes # (A) 0.41 X 10*3/uL (0.20-1.00); Monocytes % (A) 8.3 %; NRBC Per 100 WBC 0 /100 WBCS (0.0-0.0); Neutrophils # (A) 2.81 X 10*3/uL (1.80-7.70); Neutrophils % (A) 56.7 %; Platelet Count 261 X 10*3/uL (140-440); RBC 3.32 X 10*6/uL (4.10-5.20); RDW 14.3 % (11.5-14.5); WBC 4.96 X 10*3/uL (4.50-10.00)
[2022-11-07 19:34] LABS: Erythrocyte Sedimentation Rate 25 mm/Hr (0-30)
[2022-11-07 19:35] LABS: % Iron Saturation 24.14 (12.00-45.00); ALT 12 U/L (8-44); AST 17 U/L (13-35); African American GFR (CKD) 51.4 (60.0-200.0); Albumin 3.9 g/dL (3.8-4.9); Albumin/Globulin Ratio 1.66 (1.60-3.17); Alkaline Phosphatase 32 U/L (41-126); BUN/Creat Ratio 10.33 Ratio (12.00-20.00); Bilirubin, Conjugated <0.20 mg/dL (0.20-0.40); Blood Urea Nitrogen 12.5 mg/dL (9.0-27.0); Calcium 9.6 mg/dL (8.7-10.3); Carbon Dioxide 27.1 mmol/L (20.0-27.5); Chloride 105 mmol/L (96-109); Globulin 2.3 g/dL (1.6-3.3); Glucose 81 mg/dL (70-110); Iron 63 ug/dL (50-170); Non-African American GFR(CKD) 44.4 (60.0-200.0); Phosphorus 4.2 mg/dL (2.4-5.1); Potassium 4.2 mmol/L (3.5-5.5); Sodium 144 mmol/L (135-145); Total Iron Binding Capacity 262 ug/dL (228-460); Total Protein 6.2 g/dL (6.2-8.2)
[2022-11-07 19:59] LABS: Chol/HDL Ratio 3.35 Ratio; LDL Cholesterol,Calculated 109.3 mg/dL (0.0-131.0)
== END | disposition home or self-care (01) ==
LOC: LABWHC1 09:41
PROVIDERS: ATTEND Family Medicine
DX: Z51.81 Encounter for therapeutic drug level monitoring (principal); I25.118 Atherosclerotic heart disease of native coronary artery with other forms of angina pectoris; D84.9 Immunodeficiency, unspecified; M05.79 Rheumatoid arthritis with rheumatoid factor of multiple sites without organ or systems involvement; N18.31 Chronic kidney disease, stage 3a; E53.8 Deficiency of other specified B group vitamins; E55.9 Vitamin D deficiency, unspecified; D63.1 Anemia in chronic kidney disease
CPT/HCPCS: 36415; 80053; 80061; 82248; 82306; 82607; 83540; 83550; 83970; 84100; 84439; 84443; 85025; 85652; 86140

== ENCOUNTER → 2023-03-17 | Outpatient (CLI) | payer MEDICARE ==
[2023-03-17 15:15] LABS: Basophils # (A) 0.05 X 10*3/uL; Eosinophils # (A) 0.15 X 10*3/uL; Eosinophils % (A) 3.1 %; HCT 33.7 %; HGB 10.5 d/dL; Lymphocytes # (A) 1.82 X 10*3/uL; Lymphocytes % (A) 37.8 %; MCH 30.8 pg; MCHC 31.2 d/dL; MCV 98.8 FL; Mean Platelet Volume 8.7 FL; Monocytes # (A) 0.29 X 10*3/uL; NRBC Per 100 WBC 0 X 10*3/uL; Neutrophils # (A) 2.48 X 10*3/uL; Neutrophils % (A) 51.7 %; Platelet Count 341 X 10*3/uL; RBC 3.41 X 10*6/uL; RDW 13.3 %; WBC 4.81 X 10*3/uL
[2023-03-17 15:53] LABS: Immunoglobulin M 86.5 mg/dL; Protein, Total 6.8 d/dL
[2023-03-17 16:12] LABS: % Iron Saturation 18.64; ALT 17 U/L; AST 17 U/L; Albumin 3.9 d/dL; Alkaline Phosphatase 32 U/L; BUN/Creat Ratio 17.25 Ratio; Blood Urea Nitrogen 20.7 mg/dL; Calcium 10.3 mg/dL; Carbon Dioxide 25.6 mmol/L; Chloride 103 mmol/L; Chol/HDL Ratio 3.06 Ratio; Globulin 2.8 d/dL; Glucose 95 mg/dL; Iron 52 UG/DL; LDL Cholesterol,Calculated 113.8 mg/dL; Potassium 4.4 mmol/L; Sodium 145 mmol/L; Total Bilirubin <0.2 mg/dL; Total Iron Binding Capacity 279 UG/DL; Total Protein 6.7 d/dL; Uric Acid 7.4 mg/dL; VLDL Calculation 14.82 mg/dL
[2023-03-17 16:13] LABS: Albumin/Globulin Ratio 1.39 Ratio; Bilirubin, Conjugated <0.20 mg/dL
[2023-03-18 01:14] LABS: Erythrocyte Sedimentation Rate 48 mm/Hr
[2023-03-18 05:32] LABS: Cyclic Citrull Pep IgG Unit 32.9 U/mL; Cyclic Citrullinated Pep IgG Positive
[2023-03-18 15:14] LABS: Free Kappa Lt Chain Qnt, Serum 5.76 mg/dL (0.33-1.94); Free Lambda Lt Chain Qnt, Seru 4.16 mg/dL (0.57-2.63)
== END | disposition home or self-care (01) ==
LOC: LABWHC1 11:00
PROVIDERS: ATTEND Family Medicine
DX: I12.9 Hypertensive chronic kidney disease with stage 1 through stage 4 chronic kidney disease, or unspecified chronic kidney disease (principal); N18.31 Chronic kidney disease, stage 3a; D63.1 Anemia in chronic kidney disease; M06.9 Rheumatoid arthritis, unspecified; R73.9 Hyperglycemia, unspecified
CPT/HCPCS: 36415; 80053; 80061; 82248; 82306; 82728; 83010; 83036; 83540; 83550; 83883; 84165; 84443; 84550; 85025; 85652; 86038; 86140; 86200; 86334

== ENCOUNTER → 2023-03-25 | Outpatient (CLI) | payer MEDICARE ==
--- NOTE | 2023-03-25 09:33 | MM ---
Reason for Exam: Follow-up at short interval from prior study. Last mammogram was performed 1 year(s) and 3 month(s) ago. Patient History: Menarche at age 12. First Full-Term at age 24. Postmenopausal. Estrogen for 2 years until age 54. Progesterone for 2 years until age 54. 1999, Cyst Aspiration on the Left side. 12/31/1999, Benign Stereotactic Core Biopsy on the right side. Sister had breast cancer, age 42. Sister had breast cancer, age 54. Daughter had breast cancer, age 36. Risk Values: Kajal 5 year model risk: 7.2%. NCI Lifetime model risk: 16.7%. Prior Study Comparison: 10/03/1996 Screening Mammogram, Unknown. 04/10/2016 Bilateral Screening Mammogram, [facility]. 04/13/2017 Bilateral Screening Mammogram, [facility]. 04/23/2018 Bilateral Screening Mammogram, [facility]. 05/16/2019 Bilateral Screening Mammogram, [facility] 08/24/2020 Bilateral Screening Mammogram, [facility]. 12/19/2021 Bilateral Screening Mammogram, [facility] 12/25/2021 Right Diagnostic Mammogram, [facility]. 12/25/2021 Right Diagnostic Ultrasound, [facility]. 07/21/2022 Right MG diagnostic mammo RT w CAD, [facility]. 07/21/2022 Right US breast limited RT, [facility]. Tissue Density: The breast tissue is heterogeneously dense. This may lower the sensitivity of mammography. Findings: Analyzed By CAD. Pattern appears stable. The focal asymmetries bilaterally appears stable. There are scattered stable calcifications. No suspicious groups of microcalcifications, spiculated or lobular masses, architectural distortion or other secondary signs of malignancy are mammographically apparent. Overall Assessment: Benign, BI-RAD 2 Management: Screening Mammogram of both breasts in 1 year. A negative mammogram report should not preclude additional follow up of suspicious palpable abnormalities. Patient should continue monthly self breast exam. A clinical breast exam by your physician is recommended on an annual basis and results should be correlated with mammographic findings. Electronically signed and approved by: Clement Fowler D.O. Radiologis
== END | disposition home or self-care (01) ==
LOC: RADMAMWWP 08:42
PROVIDERS: ATTEND Family Medicine
DX: R92.8 Other abnormal and inconclusive findings on diagnostic imaging of breast (principal); Z78.0 Asymptomatic menopausal state; Z80.3 Family history of malignant neoplasm of breast
CPT/HCPCS: 77066; G0279; 77062

== ENCOUNTER → 2023-10-26 | Outpatient (CLI) | payer MEDICARE ==
[2023-10-26 11:12] LABS: NT-Pro-B-Type Natriuretic Pept 445 pg/mL
[2023-10-26 11:21] LABS: ALT 17 U/L (4-34); AST 23 U/L (14-36); African American GFR (CKD) 48 (>60 ml/min/1.73 sqM); Albumin 3.7 g/dL (3.5-5.0); Albumin/Globulin Ratio 1.3; Alkaline Phosphatase 41 U/L (38-126); Anion Gap 10 mmol/L; Blood Urea Nitrogen 15 mg/dL (7-17); Calcium 9.3 mg/dL (8.4-10.2); Carbon Dioxide 27 mmol/L (22-30); Chloride 107 mmol/L (98-107); Globulin 2.8 g/dL; Glucose 90 mg/dL (74-99); Non-African American GFR(CKD) 42 (>60 ml/min/1.73 sqM); Potassium 4.2 mmol/L (3.5-5.1); Sodium 144 mmol/L (137-145); Total Bilirubin 0.4 mg/dL (0.2-1.3); Total Protein 6.5 g/dL (6.3-8.2)
[2023-10-26 15:55] LABS: Basophils # (A) 0.03 X 10*3/uL (0.00-0.10); Basophils % (A) 0.6 %; Eosinophils # (A) 0.11 X 10*3/uL (0.04-0.35); Eosinophils % (A) 2.2 %; HCT 32.9 % (37.2-46.3); Lymphocytes # (A) 1.66 X 10*3/uL (0.90-5.00); Lymphocytes % (A) 33.6 %; MCH 30.7 pg (27.0-32.0); MCHC 30.4 g/dL (32.0-37.0); MCV 100.9 FL (80.0-97.0); Mean Platelet Volume 8.9 FL (9.5-12.2); Monocytes # (A) 0.43 X 10*3/uL (0.20-1.00); Monocytes % (A) 8.7 %; NRBC Per 100 WBC 0 X 10*3/uL (0.00-0.01); Neutrophils % (A) 54.7 %; Platelet Count 264 X 10*3/uL (140-440); RBC 3.26 X 10*6/uL (4.10-5.20); RDW 13.6 % (11.5-14.5); WBC 4.94 X 10*3/uL (4.50-10.00)
[2023-10-26 16:32] LABS: % Iron Saturation 19.61 (12.00-45.00); Chol/HDL Ratio 3.11 Ratio; Iron 50 UG/DL (50-170); LDL Cholesterol,Calculated 114.1 mg/dL (0.0-131.0); Total Iron Binding Capacity 255 UG/DL (228-460); VLDL Calculation 16.88 mg/dL (5.00-40.00)
[2023-10-26 17:45] LABS: INR 0.97 sec (0.93-1.11); Prothrombin Time 10.5 sec (9.9-11.9)
== END | disposition home or self-care (01) ==
LOC: LABWHC1 09:28
PROVIDERS: ATTEND Family Medicine
DX: I12.9 Hypertensive chronic kidney disease with stage 1 through stage 4 chronic kidney disease, or unspecified chronic kidney disease (principal); M85.9 Disorder of bone density and structure, unspecified; E53.8 Deficiency of other specified B group vitamins; E55.9 Vitamin D deficiency, unspecified; D63.1 Anemia in chronic kidney disease; J81.1 Chronic pulmonary edema; R73.9 Hyperglycemia, unspecified; R82.81 Pyuria; N18.31 Chronic kidney disease, stage 3a
CPT/HCPCS: 36415; 80053; 80061; 81001; 82306; 82607; 83036; 83540; 83550; 83880; 84443; 85025; 85610; 87086

== ENCOUNTER → 2023-11-03 | Outpatient (CLI) | payer MEDICARE ==
--- NOTE | 2023-11-03 12:37 | XR ---
EXAMINATION TYPE: XR chest 2V DATE OF EXAM: 11/03/2023 12:12 PM CLINICAL INDICATION:Female, 73 years old with history of I27.29 OTHER SECONDARY PULMONARY HYPERTENSIO N; [facility] COMPARISON: Chest radiographs from 08/05/2022. TECHNIQUE: XR chest 2V Frontal and lateral views of the chest. FINDINGS: Lungs/Pleura: There is no evidence of pleural effusion, focal consolidation, or pneumothorax. Pulmonary vascularity: Unremarkable. Heart/mediastinum: Cardiomediastinal silhouette is unremarkable. Musculoskeletal: No acute osseous pathology. Other findings: None IMPRESSION: No acute cardiopulmonary disease/process.
== END | disposition home or self-care (01) ==
LOC: RADXRWHC 11:49
PROVIDERS: ATTEND Family Medicine
DX: I27.29 Other secondary pulmonary hypertension (principal)
CPT/HCPCS: 71046

== ENCOUNTER → 2023-12-23 | Outpatient (CLI) | payer MEDICARE | END | disposition home or self-care (01) | LOC: LABWHC1 10:08 | PROVIDERS: ATTEND Internal Medicine | DX: Z53.9 Procedure and treatment not carried out, unspecified reason (principal) ==

== ENCOUNTER → 2023-12-23 | Outpatient (CLI) | payer MEDICARE ==
[2023-12-23 16:57] LABS: Basophils # (A) 0.05 X 10*3/uL (0.00-0.10); Basophils % (A) 0.7 %; Eosinophils # (A) 0.31 X 10*3/uL (0.04-0.35); Eosinophils % (A) 4.3 %; HCT 29.9 % (37.2-46.3); HGB 8.9 g/dL (12.0-15.0); Lymphocytes % (A) 25.2 %; MCH 29.7 pg (27.0-32.0); MCHC 29.8 g/dL (32.0-37.0); MCV 99.7 FL (80.0-97.0); Mean Platelet Volume 9.4 FL (9.5-12.2); Monocytes # (A) 0.41 X 10*3/uL (0.20-1.00); Monocytes % (A) 5.7 %; NRBC Per 100 WBC 0 X 10*3/uL (0.00-0.01); Neutrophils # (A) 4.56 X 10*3/uL (1.80-7.70); Neutrophils % (A) 63.8 %; Platelet Count 231 X 10*3/uL (140-440); RDW 14.1 % (11.5-14.5); WBC 7.15 X 10*3/uL (4.50-10.00)
[2023-12-23 17:18] LABS: % Iron Saturation 13.21 (12.00-45.00); BUN/Creat Ratio 18.75 Ratio (12.00-20.00); Glucose 92 mg/dL (70-110); Iron 35 UG/DL (50-170); Total Iron Binding Capacity 265 UG/DL (228-460)
[2023-12-23 17:19] LABS: ALT 10 U/L (8-44); AST 14 U/L (13-35); Albumin 3.8 g/dL (3.8-4.9); Albumin/Globulin Ratio 1.36 Ratio (1.60-3.17); Alkaline Phosphatase 36 U/L (41-126); Bilirubin, Conjugated <0.20 mg/dL (0.20-0.40); Bilirubin,Unconjugated >0 mg/dL (0.20-1.00); Calcium 10.3 mg/dL (8.7-10.3); Carbon Dioxide 24.6 mmol/L (21.6-31.8); Chloride 107 mmol/L (96-109); Globulin 2.8 g/dL (1.6-3.3); Potassium 4.6 mmol/L (3.5-5.5); Sodium 144 mmol/L (135-145); T4, Free (Free Thyroxine) 1.07 ng/dL (0.80-1.80); Total Bilirubin 0.2 mg/dL (0.3-1.2); Total Protein 6.6 g/dL (6.2-8.2)
== END | disposition home or self-care (01) ==
LOC: LABWHC1 10:05
PROVIDERS: ATTEND Family Medicine
DX: D64.9 Anemia, unspecified (principal)
CPT/HCPCS: 36415; 80048; 80076; 83540; 83550; 84439; 84443; 85025

== ENCOUNTER → 2024-03-15 | Outpatient (CLI) | payer MEDICARE ==
[2024-03-15 15:06] LABS: Basophils # (A) 0.05 X 10*3/uL (0.00-0.10); Eosinophils # (A) 0.29 X 10*3/uL (0.04-0.35); Eosinophils % (A) 6.1 %; HCT 33.7 % (37.2-46.3); HGB 10.1 g/dL (12.0-15.0); Lymphocytes # (A) 1.99 X 10*3/uL (0.90-5.00); Lymphocytes % (A) 41.7 %; MCH 30.1 pg (27.0-32.0); MCV 100.6 FL (80.0-97.0); Mean Platelet Volume 9.1 FL (9.5-12.2); Monocytes # (A) 0.45 X 10*3/uL (0.20-1.00); Monocytes % (A) 9.4 %; NRBC Per 100 WBC 0 X 10*3/uL (0.00-0.01); Neutrophils # (A) 1.98 X 10*3/uL (1.80-7.70); Neutrophils % (A) 41.6 %; Platelet Count 229 X 10*3/uL (140-440); RBC 3.35 X 10*6/uL (4.10-5.20); RDW 15.3 % (11.5-14.5); WBC 4.77 X 10*3/uL (4.50-10.00)
[2024-03-15 15:46] LABS: ALT 12 U/L (8-44); AST 19 U/L (13-35); Albumin 3.8 g/dL (3.8-4.9); Albumin/Globulin Ratio 1.58 Ratio (1.60-3.17); Alkaline Phosphatase 39 U/L (41-126); BUN/Creat Ratio 15.56 Ratio (12.00-20.00); Bilirubin, Conjugated <0.20 mg/dL (0.20-0.40); Blood Urea Nitrogen 24.9 mg/dL (9.0-27.0); Calcium 9.7 mg/dL (8.7-10.3); Carbon Dioxide 26.1 mmol/L (21.6-31.8); Chloride 107 mmol/L (96-109); Globulin 2.4 g/dL (1.6-3.3); Glucose 88 mg/dL (70-110); Iron 43 UG/DL (50-170); Magnesium 2.1 mg/dL (1.5-2.4); Phosphorus 4.3 mg/dL (2.4-5.1); Potassium 4.7 mmol/L (3.5-5.5); Sodium 146 mmol/L (135-145); Total Bilirubin <0.2 mg/dL (0.3-1.2); Total Iron Binding Capacity 259 UG/DL (228-460); Total Protein 6.2 g/dL (6.2-8.2)
== END | disposition home or self-care (01) ==
LOC: LABWHC1 08:18
PROVIDERS: ATTEND Internal Medicine
DX: Z51.81 Encounter for therapeutic drug level monitoring (principal); D50.0 Iron deficiency anemia secondary to blood loss (chronic); M05.79 Rheumatoid arthritis with rheumatoid factor of multiple sites without organ or systems involvement; D84.9 Immunodeficiency, unspecified; N18.31 Chronic kidney disease, stage 3a
CPT/HCPCS: 36415; 80053; 82248; 82728; 83010; 83540; 83550; 83735; 84100; 84443; 85025

== ENCOUNTER → 2024-03-30 | Outpatient (CLI) | payer MEDICARE ==
--- NOTE | 2024-04-01 13:57 | MM ---
Reason for Exam: Screening (asymptomatic). Last screening mammogram was performed 12 month(s) ago. Patient History: Menarche at age 12. First Full-Term at age 24. Postmenopausal. Estrogen for 2 years until age 54. Progesterone for 2 years until age 54. 1999, Cyst Aspiration on the Left side. 12/31/1999, Benign Stereotactic Core Biopsy on the right side. Sister had breast cancer, age 42. Sister had breast cancer, age 54. Daughter had breast cancer, age 36. Risk Values: Kajal 5 year model risk: 7.2%. NCI Lifetime model risk: 15.8%. Prior Study Comparison: 12/25/2021 Right Diagnostic Mammogram, [facility]. 07/21/2022 Right MG diagnostic mammo RT w CAD, [facility]. 03/25/2023 Bilateral MG 3D diag mammo w/cad COMPA, [facility]. Tissue Density: There are scattered areas of fibroglandular density. Findings: Analyzed By CAD. Right breast biopsy clip. Right breast: There is no suspicious group of microcalcifications or new suspicious mass. Benign-appearing calcifications right breast. Left breast: There is no suspicious group of microcalcifications or new suspicious mass. Benign-appearing calcifications left breast. Overall Assessment: Benign, BI-RAD 2 Management: Screening Mammogram of both breasts in [address] [facility] will attempt to contact patient to return for supplemental views and ultrasound if indicated. Patient should continue monthly self-breast exams. A clinical breast exam by your physician is recommended on an annual basis. This exam should not preclude additional follow-up of suspicious palpable abnormalities. Note on Kajal scores and lifetime risk: 1. A Kajal score greater than 3% is considered moderate risk. If this is the case, consider specialist referral to assess eligibility for a risk reducing agent. 2. If overall lifetime risk for the development of breast cancer is 20% or higher, the patient may qualify for future screening with alternating mammogram and breast MRI. Electronically signed and approved by: Nacho Zamora DO
== END | disposition home or self-care (01) ==
LOC: RADMAMWWP 10:45
PROVIDERS: ATTEND Family Medicine
DX: Z12.31 Encounter for screening mammogram for malignant neoplasm of breast (principal); Z80.3 Family history of malignant neoplasm of breast; Z78.0 Asymptomatic menopausal state
CPT/HCPCS: 77063; 77067

== ENCOUNTER → 2024-04-22 | Outpatient (CLI) | payer MEDICARE ==
[2024-04-22 15:34] LABS: BUN/Creat Ratio 14.62 Ratio (12.00-20.00); Blood Urea Nitrogen 23.4 mg/dL (9.0-27.0); Calcium 9.4 mg/dL (8.7-10.3); Carbon Dioxide 23.9 mmol/L (21.6-31.8); Chloride 110 mmol/L (96-109); Creatine Kinase 89 U/L (26-186); Glucose 83 mg/dL (70-110); Potassium 5.2 mmol/L (3.5-5.5); Sodium 145 mmol/L (135-145)
[2024-04-22 15:47] LABS: Basophils # (A) 0.03 X 10*3/uL (0.00-0.10); Basophils % (A) 0.6 %; Eosinophils # (A) 0.23 X 10*3/uL (0.04-0.35); Eosinophils % (A) 4.9 %; HCT 32.6 % (37.2-46.3); HGB 9.9 g/dL (12.0-15.0); Lymphocytes # (A) 1.52 X 10*3/uL (0.90-5.00); Lymphocytes % (A) 32.1 %; MCH 31.3 pg (27.0-32.0); MCHC 30.4 g/dL (32.0-37.0); MCV 103.2 FL (80.0-97.0); Mean Platelet Volume 9.3 FL (9.5-12.2); Monocytes # (A) 0.53 X 10*3/uL (0.20-1.00); Monocytes % (A) 11.2 %; NRBC Per 100 WBC 0 X 10*3/uL (0.00-0.01); Neutrophils # (A) 2.42 X 10*3/uL (1.80-7.70); Platelet Count 192 X 10*3/uL (140-440); RBC 3.16 X 10*6/uL (4.10-5.20); RDW 14.4 % (11.5-14.5); WBC 4.74 X 10*3/uL (4.50-10.00)
== END | disposition home or self-care (01) ==
LOC: LABWHC1 07:52
PROVIDERS: ATTEND Family Medicine
DX: N28.9 Disorder of kidney and ureter, unspecified (principal)
CPT/HCPCS: 36415; 80048; 82550; 85025

== ENCOUNTER → 2024-09-16 | Outpatient (CLI) | payer MEDICARE ==
[2024-09-16 15:57] LABS: % Iron Saturation 22.31 (12.00-45.00); ALT 17 U/L (8-44); AST 21 U/L (13-35); Albumin 3.8 g/dL (3.8-4.9); Albumin/Globulin Ratio 1.65 Ratio (1.60-3.17); Alkaline Phosphatase 42 U/L (41-126); BUN/Creat Ratio 14.38 Ratio (12.00-20.00); Blood Urea Nitrogen 18.7 mg/dL (9.0-27.0); Calcium 9.4 mg/dL (8.7-10.3); Carbon Dioxide 25.7 mmol/L (21.6-31.8); Chloride 110 mmol/L (96-109); Creatine Kinase 79 U/L (26-186); Globulin 2.3 g/dL (1.6-3.3); Glucose 87 mg/dL (70-110); Iron 58 UG/DL (50-170); Potassium 5.1 mmol/L (3.5-5.5); Sodium 144 mmol/L (135-145); Total Bilirubin 0.2 mg/dL (0.3-1.2); Total Iron Binding Capacity 260 UG/DL (228-460); Total Protein 6.1 g/dL (6.2-8.2); Uric Acid 6.6 mg/dL (2.9-7.7)
[2024-09-16 16:33] LABS: Appearance,Urine Clear (Clear); Bilirubin,Urine Negative (Negative); Blood,Urine Negative (Negative); Color,Urine Yellow (Yellow); Ketones,Urine Negative (Negative); Nitrite,Urine Negative (Negative); PH, Urine 5.5; Specific Gravity,Urine 1.015 (1.001-1.030); Urobilinogen,Urine 0.2 E.U./DL
[2024-09-16 19:12] LABS: HCT 33.1 % (37.2-46.3); HGB 9.9 g/dL (12.0-15.0); MCH 30.9 pg (27.0-32.0); MCHC 29.9 g/dL (32.0-37.0); MCV 103.4 FL (80.0-97.0); Mean Platelet Volume 9.2 FL (9.5-12.2); NRBC Per 100 WBC 0 X 10*3/uL (0.00-0.01); Platelet Count 199 X 10*3/uL (140-440); RDW 14.6 % (11.5-14.5); WBC 3.85 X 10*3/uL (4.50-10.00)
== END | disposition home or self-care (01) ==
LOC: LABWHC1 09:07
PROVIDERS: ATTEND Family Medicine
DX: N18.9 Chronic kidney disease, unspecified (principal); D63.1 Anemia in chronic kidney disease
CPT/HCPCS: 36415; 80053; 81003; 82550; 83540; 83550; 84443; 84550; 85027

== ENCOUNTER → 2024-12-22 | Outpatient (CLI) | payer MEDICARE ==
[2024-12-22 10:26] LABS: Albumin 3.8 g/dL (3.8-4.9); BUN/Creat Ratio 14.77 Ratio (12.00-20.00); Blood Urea Nitrogen 19.2 mg/dL (9.0-27.0); Calcium 9.9 mg/dL (8.7-10.3); Carbon Dioxide 27.6 mmol/L (21.6-31.8); Chloride 109 mmol/L (96-109); Glucose 90 mg/dL (70-110); Phosphorus 5.4 mg/dL (2.4-5.1); Sodium 146 mmol/L (135-145)
== END | disposition home or self-care (01) ==
LOC: LABWHC1 07:40
PROVIDERS: ATTEND Internal Medicine
DX: M05.79 Rheumatoid arthritis with rheumatoid factor of multiple sites without organ or systems involvement (principal); Z51.81 Encounter for therapeutic drug level monitoring; Z79.899 Other long term (current) drug therapy
CPT/HCPCS: 36415; 80069

== ENCOUNTER → 2025-01-26 | Outpatient (CLI) | payer MEDICARE ==
[2025-01-26 15:33] LABS: Blood Urea Nitrogen 19.3 mg/dL (9.0-27.0); Carbon Dioxide 24.8 mmol/L (21.6-31.8); Chloride 110 mmol/L (96-109); Sodium 145 mmol/L (135-145)
[2025-01-26 15:38] LABS: HCT 33.4 % (37.2-46.3); HGB 10.2 g/dL (12.0-15.0); MCH 30.5 pg (27.0-32.0); MCHC 30.5 g/dL (32.0-37.0); Mean Platelet Volume 8.8 FL (9.5-12.2); NRBC Per 100 WBC 0 X 10*3/uL (0.00-0.01); Platelet Count 303 X 10*3/uL (140-440); RBC 3.34 X 10*6/uL (4.10-5.20); RDW 13.3 % (11.5-14.5); WBC 4.78 X 10*3/uL (4.50-10.00)
== END | disposition home or self-care (01) ==
LOC: LABPAT 09:50
PROVIDERS: ATTEND Internal Medicine Interventional Cardiology
DX: Z01.812 Encounter for preprocedural laboratory examination (principal); I35.0 Nonrheumatic aortic (valve) stenosis; R94.39 Abnormal result of other cardiovascular function study
CPT/HCPCS: 80051; 82565; 84520; 85027

== ENCOUNTER → 2025-01-30 | Day surgery (SDC) | payer MEDICARE ==
[2025-01-27 08:50] VITALS: BMI 33.5
[~2025-01-30] MED LIST changes: +ALBUTEROL NEBULIZED 2.5 MG/3 ML INHALATION PRN; +ASCORBIC ACID 500 MG TAB PO SCH; +ASPIRIN 81 MG PO SCH; +CALCIUM CARB-VIT D 500 MG-5 MCG TAB PO SCH; +CHROND PO SCH; +D3 PO SCH; +ESCITALOPRAM 10 MG TAB PO SCH; +FERROUS SULFATE 325 MG TAB PO SCH; +FOLIC ACID 1 MG TAB PO SCH; +GLUCOSAMINE PO SCH; +HYDROXYCHLOROQUINE SULFATE 200 MG TAB PO SCH; -LACTATED RINGERS 1,000 ML IV SCH; +LOPERAMIDE 2 MG CAP PO SCH; +LOSARTAN 50 MG TAB PO SCH; +MAGNESIUM OXIDE 400 MG TAB PO SCH; +MSM PO SCH; +MULTIVITAMINS, THERA 1 EACH TAB PO SCH; +NITROGLYCERIN SL TABS 0.4 MG TAB SUBLINGUAL PRN; +NON FORMULARY DRUG (Elderberry Fruit [Elderberry] 350 MG Capsule) PO SCH; +PANTOPRAZOLE 40 MG TABLET PO SCH; +SODIUM CHLORIDE 0.9% 1,000 ML IV SCH; +SUCRALFATE 1 GM TAB PO SCH; +VALSARTAN 160 MG TAB PO SCH; +[UNRECOGNIZED DRUG - OTHER] PO SCH; +metHOTREXate sodium 2.5 MG TAB PO SCH; +methocarbamoL 500 MG TAB PO PRN
[2025-01-30] MEDS: IV FLUID CONTINUATION 1,000 ML IV ONE (09:25)
[2025-01-30] MEDS: SODIUM CHLORIDE 0.9% 1,000 ML in EMPTY BAG 1 BAG IV SCH (09:25)
[2025-01-30] MEDS: ALPRAZolam 0.5 MG TAB PO PRN (09:43)
[2025-01-30] MEDS: ASPIRIN 325 MG TAB PO STA (09:48)
[2025-01-30 09:55] VITALS: TEMP 98.5
[2025-01-30] MEDS: HEPARIN SODIUM,PORCINE (1 ML) 2,500 UNIT in SODIUM CHLORIDE 0.9% 250 ML IRRIGATION PRN (10:37)
[2025-01-30] MEDS: HEPARIN SODIUM,PORCINE 10,000 UNIT in SODIUM CHLORIDE 0.9% 1,000 ML IRRIGATION PRN (10:37)
[2025-01-30] MEDS: MIDAZOLAM 2 MG/2 ML VIAL IVP ONE ×2 (10:44→11:10)
[2025-01-30] MEDS: LIDOCAINE 1% INJ 10MG/ML (20 ML MDV) SQ ONE (10:51)
[2025-01-30] MEDS: VERAPAMIL SYRINGE (5 MG/10 ML) INTRAARTER ONE (10:57)
[2025-01-30] MEDS: HEPARIN SODIUM 1,000 UN/ML (10ML VL) IV ONE (10:57)
[2025-01-30] MEDS: NITROGLYCERIN SL TABS 0.4 MG TAB SUBLINGUAL ONE (10:59)
[2025-01-30] MEDS: NITROGLYCERIN 1000MCG/10ML SYRINGE INTRACORON ONE (11:02)
[2025-01-30] MEDS: SODIUM CHLORIDE 0.9% 1,000 ML IV ONE (11:09)
[2025-01-30] MEDS: HYDROmorphone 0.5 MG/0.5 ML SYRINGE IVP ONE (11:16)
[2025-01-30] MEDS: IOPAMIDOL-370 100ML BTL INJ ONE ×2 (11:26→11:58)
[2025-01-30] MEDS: TICAGRELOR 90 MG TAB PO ONE (11:34)
[2025-01-30] MEDS: ATORVASTATIN 80 MG TAB PO STA (13:30)
--- NOTE | 2025-01-30 13:37 | CC ---
CARDIAC CATHETERIZATION REPORT PROCEDURES PERFORMED: 1. Left heart catheterization and coronary angiography. 2. Percutaneous transluminal coronary angioplasty and. 3. stenting of mid circumflex with a drug-eluting stent. 4. Intravascular ultrasound of circumflex coronary artery. 5. Instantaneous wave-free ratio assessment of proximal and mid left anterior descending. PERFORMED BY: Dr. Bebe Alanis. ANESTHESIA: Moderate conscious sedation time was 60 minutes. The patient was administered Versed and Dilaudid. Oxygen saturation, hemodynamics and EKG were monitored closely. CLINICAL INFORMATION: Ms. Leora Mckinley is a 74-year-old lady with a history of rheumatoid arthritis, degenerative joint disease, hypertension, hyperlipidemia, and moderate CAD with recent abnormal stress test with inferolateral reversible defect and also mid anterior partially reversible defect. She was advised cardiac cath after due discussion regarding risks, benefits, and options. PROCEDURE NOTE: Under local anesthesia and strict aseptic precautions, with the help of ultrasound, I gained access into the right radial artery. A 6-Iranian introducer was placed. JL 3.5 and JR4 catheters were used to perform coronary angiography and the same right catheter was used to check LV pressure, but LV-gram was not performed. Following this, I performed intervention of the circumflex and checked IFR of LAD and performed intravascular ultrasound of the circumflex. The RCA had probably some spasm in the proximal portion. A repeat injection of RCA was performed at the end of the procedure. The patient tolerated the procedure well. The sheath was taken out and TR band applied as per protocol with saturation of the fingers of the right hand of 97%. The patient received 7500 units of heparin and she weighs about 88 kg. Her ACT was 249 and she received additional 1000 at the end of the procedure. She received 180 mg of Brilinta and will be on aspirin and Brilinta combination for 1 year without interruption. CARDIAC CATHETERIZATION FINDINGS: The left ventricular end-diastolic pressure was about 14 mmHg and there was a gradient of about 8 mmHg across the aortic valve on a pullback. CORONARY ANGIOGRAPHY FINDINGS: Right coronary artery: Large dominant vessel, had a catheter-induced spasm, distally bifurcates into large PDA and PLV. No significant disease. Minor irregularities noted. The proximal RCA has a spasm with the catheter injection and at the end of the procedure, a repeat injection revealed the vessel was widely patent. Left main coronary artery: Short patent vessel. No significant disease. Bifurcates into LAD and circumflex. Left anterior descending coronary artery: Good caliber vessel gives off a good-sized diagonal branch and immediately after the diagonal branch, there is about a 40% narrowing after which the vessel improves in caliber, runs all the way to the apex supplying a sizable amount of myocardium. The diagonal is free of significant disease. I performed an IFR of the mid LAD and it was 0.92 suggesting that the mid lesion was not hemodynamically significant. Left posterior circumflex coronary artery: Nondominant vessel, large in caliber and distribution, has an eccentric 90% to 95% lesion in the midportion and distally appears to be a large caliber large distribution vessel that bifurcates into 2 branches and supplies a sizable amount of myocardium. The nondominant circumflex is 85% to 90% stenosis, eccentric in nature. It appears to be the culprit lesion. The patient had chest pain when I injected the left coronary system. FINAL IMPRESSION: This patient has normal filling pressures. Very minimal gradient of about 8 mmHg across the aortic valve. She has a right-dominant system. No significant disease in the RCA. There was a catheter-induced spasm. Left main is free of significant disease. Mid LAD has a 45% narrowing. IFR is negative. Mid circumflex has a 90% lesion, appears to be the culprit lesion and significant progression of disease. RECOMMENDATIONS: I recommended PCI of circumflex, IFR of LAD, and re-injection of the RCA. PCI PROCEDURE DETAILS: I used a JL3.5 guide catheter and omni wire. This wire was appropriately calibrated, normalized, and then the wire was advanced into the LAD. I performed IFR, 2 readings were taken 0.92 and 0.93. The LAD lesion in the midportion was about 40% to 45%, not hemodynamically significant by IFR. I then used a run-through wire and advanced it into the circumflex and kept it distally. Predilatation was performed with a 2.5 caliber NC Trek balloon. I then performed intravascular ultrasound, noted that the vessel was about 3.4 mm. I deployed a 3.5 caliber Xience stent at 13 atmospheres. Excellent angiographic result was achieved. I performed intravascular ultrasound, which revealed that the stent was fully expanded and very well apposed. Excellent angiographic and ultrasound appearance was noted. I then performed selective injection of the nooksack RCA with a guide catheter and noted that the RCA was widely patent and previously noted spasm in the proximal portion had resolved. The details were discussed with the patient and . The catheters were taken out and TR band applied to achieve good hemostasis. Excellent angiographic result was achieved of the circumflex and IVUS also revealed full expansion of the stent and good apposition. IFR of LAD was negative. RCA had no significant disease. MMODL / IJN: [id number] /
[2025-01-30] MEDS: amLODIPine 5 MG TAB PO STA (14:01)
[2025-01-30] MEDS: ALPRAZolam 0.25 MG TAB PO PRN (14:27)
[2025-01-30] MEDS: ACETAMINOPHEN TAB 325 MG TAB PO PRN (14:28)
[2025-01-30] MEDS: GABAPENTIN 300 MG CAP PO SCH (16:20)
[2025-01-30] MEDS: LOSARTAN 50 MG TAB PO STA (16:31)
[2025-01-30 19:02] VITALS: RESP 14
[2025-01-30 19:03] VITALS: BP 146/61; PULSE 46
== END ==
LOC: CATHCVL 09:05
PROVIDERS: ATTEND Internal Medicine Interventional Cardiology
DX: I25.10 Atherosclerotic heart disease of native coronary artery without angina pectoris (principal); I10 Essential (primary) hypertension; E78.5 Hyperlipidemia, unspecified; G47.33 Obstructive sleep apnea (adult) (pediatric); M06.9 Rheumatoid arthritis, unspecified
CPT/HCPCS: 92978; 93458; 93799; C9600; C1894; C1769; C1753; C1725; J2250; J1644 ×3; J2003; J1171; Q9967; J2305

== ENCOUNTER → 2025-05-10 | Outpatient (CLI) | payer MEDICARE ==
--- NOTE | 2025-05-10 14:34 | MM ---
Reason for Exam: Screening (asymptomatic). Last mammogram was performed 1 year(s) and 1 month(s) ago. Patient History: Menarche at age 12. First Full-Term at age 24. Postmenopausal. Estrogen for 2 years until age 54. Progesterone for 2 years until age 54. 1999, Cyst Aspiration on the Left side. 12/31/1999, Benign Stereotactic Core Biopsy on the right side. Sister had breast cancer, age 42. Sister had breast cancer, age 54. Daughter had breast cancer, age 36. Risk Values: Kajal 5 year model risk: 7.1%. NCI Lifetime model risk: 14.0%. Prior Study Comparison: 07/21/2022 Right MG diagnostic mammo RT w CAD, [facility]. 03/25/2023 Bilateral MG 3D diag mammo w/cad COMPA, [facility]. 03/30/2024 Bilateral MG 3D screening mammo w/cad, [facility]. Tissue Density: The breasts are heterogeneously dense, which may obscure small masses. Findings: Analyzed By CAD. Nodular asymmetric density lateral anterior left cc view appears more defined/larger and incompletely disperses on 3-D images. This may represent superimposition shadow but further evaluation is recommended. Otherwise, unchanged areas of asymmetric density in the superior aspect of both breasts as well as benign secretory calcifications on the right and microclip right breast from prior biopsy. Overall Assessment: Incomplete: need additional imaging evaluation, BI-RAD 0 Management: Special View Mammogram of the left breast. [facility] will attempt to contact patient to return for supplemental views and ultrasound if indicated. See note below in regards to the patient's increased 5 year Kajal score. Note on Kajal scores and lifetime risk: 1. A Kajal score greater than 3% is considered moderate risk. If this is the case, consider specialist referral to assess eligibility for a risk reducing agent. 2. If overall lifetime risk for the development of breast cancer is 20% or higher, the patient may qualify for future screening with alternating mammogram and breast MRI. [facility], , 05/10/2025 2:29 PM. Electronically signed and approved by: Gustavo Laboy M.D. Radiologist
== END | disposition home or self-care (01) ==
LOC: RADMAMWWP 08:17
PROVIDERS: ATTEND Family Medicine
DX: Z12.31 Encounter for screening mammogram for malignant neoplasm of breast (principal); R92.333 Mammographic heterogeneous density, bilateral breasts; Z78.0 Asymptomatic menopausal state; Z80.3 Family history of malignant neoplasm of breast
CPT/HCPCS: 77063; 77067